=== PATIENT | female | born 1950 | race Caucasian/White ===

== ENCOUNTER → 2016-03-16 | Outpatient (CLI) | payer MEDICARE, OTHER | LOC: GMAL 10:49 | PROVIDERS: ATTEND Family Medicine | DX: M10.09 Idiopathic gout, multiple sites (principal) ==

== ENCOUNTER → 2016-03-24 | Outpatient (CLI) | payer MEDICARE, OTHER | LOC: GMAL 10:26 | PROVIDERS: ATTEND Family Medicine | DX: D51.3 Other dietary vitamin B12 deficiency anemia (principal) ==

== ENCOUNTER → 2016-04-06 | Outpatient (CLI) | payer MEDICARE, OTHER | LOC: GMAL 10:59 | PROVIDERS: ATTEND Family Medicine | DX: N30.00 Acute cystitis without hematuria (principal) ==

== ENCOUNTER → 2016-04-07 | Outpatient (CLI) | payer MEDICARE, OTHER ==
--- NOTE | 2016-04-07 11:08 | US ---
EXAM DESCRIPTION: US LIVER CLINICAL HISTORY: ELEVATED LFT'S COMPARISON: [address] scan of the abdomen TECHNIQUE: Right upper quadrant ultrasound FINDINGS: Today's study shows marked dilatation of the common bile duct measuring up to 2.1 cm in diameter. The etiology of the bile duct dilatation is not apparent on the sonogram. Pancreas is poorly seen secondary to overlying intestinal gas. There are areas of dirty shadowing within the liver which I suspect is secondary to air in the common bile duct indicating that this patient may have had previous papillotomy. Please correlate for history of previous biliary intervention. The liver is heterogeneous in echotexture with areas of hyperechogenicity consistent with fatty infiltration in correlating well with the CT scan findings. Gallbladder surgically absent. Right kidney unremarkable. IVC is unremarkable. Abdominal aorta not well seen. IMPRESSION: 1. Dilated common bile duct of uncertain etiology. I recommend further evaluation of the liver and bile duct with ultrasound. ERCP verses MRCP should be considered as well. Electronically signed by: Fitz Leslie MD 04/07/2016 11:07
== END ==
LOC: US 09:12
PROVIDERS: ATTEND Family Medicine
DX: R94.5 Abnormal results of liver function studies (principal)

== ENCOUNTER → 2016-04-12 | Outpatient (CLI) | payer MEDICARE, OTHER | LOC: NC 12:21 | PROVIDERS: ATTEND Family Medicine | DX: R30.0 Dysuria (principal); R30.9 Painful micturition, unspecified ==

== ENCOUNTER → 2016-04-14 | Outpatient (CLI) | payer MEDICARE, OTHER ==
--- NOTE | 2016-04-17 07:39 | MRI ---
EXAM DESCRIPTION: MR ABDOMEN WITHOUT IV CONTRAST CLINICAL HISTORY: 65 y/o F, DILATED COMMON BILE DUCT COMPARISON: None TECHNIQUE: Multiplanar multi sequence images of the abdomen were obtained without gadolinium contrast including MRCP images. FINDINGS: The common bile duct is dilated, measuring up to 2.3 cm transverse diameter. This is unchanged from an older CT performed in December,. No intraductal filling defect or stricture is identified. The cystic duct remnant is also slightly dilated. There is mild central intrahepatic biliary duct dilation. Pancreas divisum configuration of the pancreatic ductal anatomy is noted, but there is no pancreatic duct dilation. There is no peripancreatic fluid or inflammation. The gallbladder is surgically absent. The spleen is not enlarged. There is no abdominal aortic aneurysm. A tiny cyst arises from the superior pole of the left kidney. IMPRESSION: Extrahepatic and mild central intrahepatic biliary duct dilation, not significantly changed from August,. No filling defect or stricture in the common bile duct. Pancreas divisum without pancreatic duct dilation or evidence of pancreatitis. Electronically signed by: Wolf Palmer DO 04/17/2016 07:36
== END | disposition home or self-care (01) ==
LOC: MRI 09:54
PROVIDERS: ATTEND Family Medicine
DX: K76.9 Liver disease, unspecified (principal); Z98.84 Bariatric surgery status

== ENCOUNTER → 2016-04-18 | Outpatient (CLI) | payer MEDICARE, OTHER | END | disposition home or self-care (01) | LOC: GMAL 14:53 | PROVIDERS: ATTEND Family Medicine | DX: R30.0 Dysuria (principal) ==

== ENCOUNTER → 2016-04-25 | Outpatient (CLI) | payer MEDICARE, OTHER | END | disposition home or self-care (01) | LOC: GMAL 14:21 | PROVIDERS: ATTEND Family Medicine | DX: R30.0 Dysuria (principal) ==

== ENCOUNTER → 2016-05-30 | Outpatient (CLI) | payer MEDICARE, OTHER | LOC: SL 21:30 | PROVIDERS: ATTEND Psychiatry & Neurology Neurology | DX: G47.30 Sleep apnea, unspecified (principal); R09.89 Other specified symptoms and signs involving the circulatory and respiratory systems; R06.83 Snoring ==

== ENCOUNTER → 2016-08-16 | Outpatient (CLI) | payer MEDICARE, OTHER | END | disposition home or self-care (01) | LOC: GMAL 16:37 | PROVIDERS: ATTEND Family Medicine | DX: N30.00 Acute cystitis without hematuria (principal) ==

== ENCOUNTER 2016-09-07 11:47 | Emergency (ER) | payer MEDICARE, OTHER ==
--- NOTE | 2016-09-07 13:03 | ED.PDOC ---
History of Present Illness - General Chief Complaint: Lower Extremity Injury Stated Complaint: left leg swelling Time Seen by Provider: 09/07/16 12:56 Source: patient, RN notes reviewed, Vital Signs reviewed Exam Limitations: no limitations - History of Present Illness Initial Comments: Leah Mcclellan 65 y/o female stated that she noticed her left leg gradually swelled up left>right for the last 4 weeks after her warfarin was discontinued for her blood clots on her left leg Occurred: other - 3-4 weeks ago Pain - Lower Extremity: moderate: Left Calf, Right Calf Method of Injury: unknown Improving Factors: nothing Worsening Factors: nothing Allergies/Adverse Reactions: Allergies Acetaminophen [From Percocet] Allergy (Intermediate, Verified 02/23/16 09:22) Shortness of Breath CI Pigment Blue 63 [From Cymbalta] Allergy (Intermediate, Verified 02/23/16 09: 22) Shortness of Breath Codeine Allergy (Intermediate, Verified 02/23/16 09:22) Hives Duloxetine [From Cymbalta] Allergy (Intermediate, Verified 02/23/16 09:22) Shortness of Breath Meperidine [From Demerol HCl] Allergy (Intermediate, Verified 02/23/16 09:22) Shortness of Breath Oxycodone [From Percocet] Allergy (Intermediate, Verified 02/23/16 09:22) Shortness of Breath Citalopram [From Celexa] Allergy (Verified 02/23/16 09:22) Hydrocodone Allergy (Verified 02/23/16 09:22) Pregabalin [From Lyrica] Allergy (Verified 02/23/16 09:22) Home Medications: Ambulatory Orders DiphenhydrAMINE HCL [Benadryl] 25 mg PO PRN PRN 11/19/13 Diazepam [Valium] 10 mg PO BID PRN 07/06/14 Furosemide [Lasix] 80 mg PO DAILY 07/06/14 Levothyroxine Sodium [Synthroid] 175 mcg PO BEDTIME 07/06/14 Morphine Sulfate [Ms Contin] 90 mg PO BEDTIME 07/06/14 Potassium Chloride [Micro-K] 10 meq PO BID 07/06/14 Morphine Sulfate [Ms Contin] 30 mg PO TID PRN 07/08/14 Atenolol [Tenormin] 100 mg PO DAILY 08/04/14 Mirtazapine [Remeron] 30 mg PO QDAC #30 tab 08/07/14 Esomeprazole Magnesium [Nexium 24Hr] 20 mg PO BEDTIME 05/31/15 Gabapentin [Neurontin] 100 mg PO BEDTIME 05/31/15 Glimepiride 1 mg PO DAILY 05/31/15 Colchicine 1.2 mg PO ONCE #3 tab 02/09/16 Colchicine [Colcrys] 1 each PO DAILY 02/23/16 Linagliptin [Tradjenta] 5 mg PO DAILY 02/23/16 Metoclopramide HCl [Reglan] 10 mg PO BEDTIME 02/23/16 Potassium Gluconate 550 mg PO DAILY 02/23/16 Rivaroxaban [Xarelto] 15 mg PO DAILY 02/23/16 Sulfa/Trimeth 800/160 (Ds) Tab [Bactrim DS] 1 each PO BID 02/23/16 Trazodone HCl 50 mg PO BEDTIME 02/23/16 Uloric 80 mg PO DAILY 02/23/16 Review of Systems - Review of Systems Constitutional: States: no symptoms reported EENTM: States: no symptoms reported Respiratory: States: no symptoms reported Cardiology: States: no symptoms reported Gastrointestinal/Abdominal: States: no symptoms reported Genitourinary: States: no symptoms reported Musculoskeletal: States: see HPI Skin: States: no symptoms reported Neurological: States: no symptoms reported Endocrine: States: no symptoms reported Hematologic/Lymphatic: States: no symptoms reported Past Medical History (General) - Patient Medical History Hx Seizures: No Hx Stroke: No Hx Dementia: No Hx Asthma: No Hx of COPD: No Hx Cardiac Disorders: No Hx Congestive Heart Failure: No Hx Pacemaker: No Hx Hypertension: Yes Hx Thyroid Disease: Yes Hx Diabetes: Yes Hx Gastroesophageal Reflux: Yes Hx Renal Disease: Yes Hx Cancer: Yes Hx of HIV: No Hx Hepatitis C: No Hx MRSA: Yes MRSA Source:: Wound Surgical History: tonsillectomy - toe amputations,knee,carpal tunnel surgery, other - right hemicolectomy,ctaract, - Vaccination History Hx Tetanus, Diphtheria Vaccination: Yes Hx Influenza Vaccination: Yes Hx Pneumococcal Vaccination: Yes - Social History Hx Tobacco Use: No Hx Chewing Tobacco Use: No Hx Alcohol Use: No Hx Substance Use: No Hx Substance Use Treatment: No Hx Depression: No Hx Physical Abuse: No Hx Emotional Abuse: No Hx Suspected Abuse: No - Activities of Daily Living Grooming Ability: Independent Eating (Feeding) Ability: Independent Toileting Ability: Standby Assistance - Female History Patient : No Family Medical History - Family History Father Family History: Unknown Living Status: Hx Family Asthma: No Hx Family Congestive Heart Failure: Yes Hx Family Hypertension: Yes Hx Family Stroke: No Hx Cardiac Disease: Yes Hx Family Diabetes: No Hx Family Cancer: Yes - colon several family members Mother Family History: Unknown Living Status: Hx Family Asthma: Yes Hx Family Congestive Heart Failure: Yes Hx Family Hypertension: Yes Hx Family Stroke: No Hx Cardiac Disease: Yes - hx CABG Hx Family Diabetes: No Hx Family Cancer: No Hx Family;Other: emphysema Physical Exam - Physical Exam General Appearance: Alert, Comfortable, No apparent distress Eyes, Ears, Nose, Throat: PERRL/EOMI, normal ENT inspection, TMs normal, pharynx normal Neck: non-tender, full range of motion, supple, normal inspection Cardiovascular/Respiratory: regular rate, rhythm, no M/R/G, normal peripheral pulses, no JVD, normal breath sounds, no respiratory distress Gastrointestinal/Abdominal: non-tender, no organomegaly Back: normal inspection, no CVA tenderness, no vertebral tenderness Thigh/Hip: normal inspection, no evidence of injury Knee: swelling - left leg,no calf tenderness,also noted mild swelling right leg with varicosities noted Ankle: normal inspection, normal ROM Foot: other - multiple toe amputations Mental Status: alert, oriented x 3 Skin: normal color, warm/dry Progress - Progress Progress: 09/07/16 15:49 Vital Signs - 8 hr 09/07/16 09/07/16 09/07/16 12:30 13:14 14:26 Temperature 97.3 F L Pulse Rate [ 74 71 76 LEFT BRACHIAL] Respiratory 20 20 16 Rate Blood Pressure 155/73 125/63 153/74 [RIGHT BRACHIAL ] O2 Sat by Pulse 95 96 100 Oximetry 09/07/16 15:14 Temperature Pulse Rate [ 63 LEFT BRACHIAL] Respiratory 16 Rate Blood Pressure 129/69 [RIGHT BRACHIAL ] O2 Sat by Pulse 100 Oximetry - Results/Orders Results/Orders: Laboratory Results - last 24 hr 09/07/16 09/07/16 09/07/16 13:20 13:25 13:25 WBC 4.9 RBC 3.47 L Hgb 11.1 L Hct 32.4 L MCV 93.3 MCH 31.9 H MCHC 34.3 RDW 14.0 Plt Count 119 L MPV 7.9 Absolute Neuts (auto) 2.80 Absolute Lymphs (auto) 1.60 Absolute Monos (auto) 0.40 Absolute Eos (auto) 0.20 Absolute Basos (auto) 0.00 Neutrophils % 56.8 Lymphocytes % 31.9 Monocytes % 7.6 Eosinophils % 3.2 Basophils % 0.5 PT 11.5 INR 1.020 PTT (SP) 29.4 Sodium Potassium Chloride Carbon Dioxide Anion Gap BUN Creatinine BUN/Creatinine Ratio Random Glucose Serum Osmolality Calcium Urine Color Yellow Urine Appearance Sl cloudy Urine pH 5.0 Ur Specific [place] 1.010 Urine Protein Negative Urine Glucose (UA) Negative Urine Ketones Negative Urine Blood Negative Urine Nitrite Negative Urine Bilirubin Negative Urine Urobilinogen 0.2 Ur Leukocyte Esterase Negative Urine RBC 0-1 Urine WBC 0 Ur Epithelial Cells 0-1 Amorphous Sediment 1+ Urine Bacteria 1+ 09/07/16 13:25 WBC RBC Hgb Hct MCV MCH MCHC RDW Plt Count MPV Absolute Neuts (auto) Absolute Lymphs (auto) Absolute Monos (auto) Absolute Eos (auto) Absolute Basos (auto) Neutrophils % Lymphocytes % Monocytes % Eosinophils % Basophils % PT INR PTT (SP) Sodium 141 Potassium 4.1 Chloride 104 Carbon Dioxide 28 Anion Gap 13.1 BUN 18 Creatinine 1.36 H BUN/Creatinine Ratio 13.2 Random Glucose 114 H Serum Osmolality 284.0 Calcium 8.9 Urine Color Urine Appearance Urine pH Ur Specific [place] Urine Protein Urine Glucose (UA) Urine Ketones Urine Blood Urine Nitrite Urine Bilirubin Urine Urobilinogen Ur Leukocyte Esterase Urine RBC Urine WBC Ur Epithelial Cells Amorphous Sediment Urine Bacteria - EKG/XRAY/CT XRAY: bilateral venous doppler-leg no dvt/radiologist Departure - Departure Clinical Impression: Localized swelling of both lower legs, History of DVT of lower extremity, CKD ( chronic kidney disease) stage 2, GFR 60-89 ml/min Time of Disposition: 15:51 Disposition: Discharge to Home or Self Care Condition: Fair Referrals: Yahir Thompson III, MD [Primary Care Provider] - 1-2 Weeks Home Medications: Ambulatory Orders DiphenhydrAMINE HCL [Benadryl] 25 mg PO PRN PRN 11/19/13 Diazepam [Valium] 10 mg PO BID PRN 07/06/14 Furosemide [Lasix] 80 mg PO DAILY 07/06/14 Levothyroxine Sodium [Synthroid] 175 mcg PO BEDTIME 07/06/14 Morphine Sulfate [Ms Contin] 90 mg PO BEDTIME 07/06/14 Potassium Chloride [Micro-K] 10 meq PO BID 07/06/14 Morphine Sulfate [Ms Contin] 30 mg PO TID PRN 07/08/14 Atenolol [Tenormin] 100 mg PO DAILY 08/04/14 Mirtazapine [Remeron] 30 mg PO QDAC #30 tab 08/07/14 Esomeprazole Magnesium [Nexium 24Hr] 20 mg PO BEDTIME 05/31/15 Gabapentin [Neurontin] 100 mg PO BEDTIME 05/31/15 Glimepiride 1 mg PO DAILY 05/31/15 Colchicine 1.2 mg PO ONCE #3 tab 02/09/16 Colchicine [Colcrys] 1 each PO DAILY 02/23/16 Linagliptin [Tradjenta] 5 mg PO DAILY 02/23/16 Metoclopramide HCl [Reglan] 10 mg PO BEDTIME 02/23/16 Potassium Gluconate 550 mg PO DAILY 02/23/16 Rivaroxaban [Xarelto] 15 mg PO DAILY 02/23/16 Sulfa/Trimeth 800/160 (Ds) Tab [Bactrim DS] 1 each PO BID 02/23/16 Trazodone HCl 50 mg PO BEDTIME 02/23/16 Uloric 80 mg PO DAILY 02/23/16 Additional Instructions: Follow up with primary md 09/13/2016 patient to call for appointment;Return to emergency room as needed;Continue with all home medications
--- NOTE | 2016-09-07 14:11 | US ---
EXAM DESCRIPTION: Venous,Lower Extremity RT CLINICAL HISTORY: 65 years, Female, swelling COMPARISON: None TECHNIQUE: Duplex venous ultrasound of the right lower extremity was performed. FINDINGS: The right lower extremity veins are fully compressible and demonstrate physiologic responses to Valsalva maneuvers. Color Doppler images show no intraluminal filling defect. IMPRESSION: Negative exam. No evidence of DVT in the right lower extremity. Electronically signed by: Wolf Palmer MD 09/07/2016 2:09 PM CDT Workstation: [facility]
[2016-09-07] MEDS ORDERED: MORPHINE SULFATE INJ 10 MG/ML VIAL IM ONE (14:44)
--- NOTE | 2016-09-07 15:01 | US ---
Study: Left lower extremity venous Doppler sonogram. Indication: swelling Technical: Multiplanar grayscale and Doppler sonographic images of the deep veins of the left lower extremity obtained. Findings: There is no sonographic evidence of deep venous thrombosis. The deep veins of the left lower extremity compress normally and have appropriate duplex waveforms. Normal flow augmentation is noted as well. Conclusion: 1. No sonographic evidence of deep venous thrombosis of the left lower extremity. Electronically signed by: Angel Luis Almanzar MD 09/07/2016 3:00 PM CDT
[2016-09-07 15:39] VITALS: TEMP 97.3
[2016-09-07 16:53] VITALS: BP 131/55; O2SAT 96
== END 2016-09-07 16:40 | disposition home or self-care (01) ==
LOC: ER 11:47
DX: R22.43 Localized swelling, mass and lump, lower limb, bilateral (principal); Z86.718 Personal history of other venous thrombosis and embolism; I12.9 Hypertensive chronic kidney disease with stage 1 through stage 4 chronic kidney disease, or unspecified chronic kidney disease; N18.2 Chronic kidney disease, stage 2 (mild); E07.9 Disorder of thyroid, unspecified; K21.9 Gastro-esophageal reflux disease without esophagitis; Z85.9 Personal history of malignant neoplasm, unspecified; Z86.14 Personal history of Methicillin resistant Staphylococcus aureus infection; Z89.429 Acquired absence of other toe(s), unspecified side; Z79.899 Other long term (current) drug therapy; Z88.8 Allergy status to other drugs, medicaments and biological substances
CPT/HCPCS: 36415; 80048; 81001; 85025; 85610; 85730; 93971; J2270

== ENCOUNTER → 2016-09-19 | Outpatient (CLI) | payer MEDICARE, OTHER | END | disposition home or self-care (01) | LOC: NC 09:55 | PROVIDERS: ATTEND Family Medicine | DX: E11.22 Type 2 diabetes mellitus with diabetic chronic kidney disease (principal); D51.0 Vitamin B12 deficiency anemia due to intrinsic factor deficiency; R30.0 Dysuria; I12.9 Hypertensive chronic kidney disease with stage 1 through stage 4 chronic kidney disease, or unspecified chronic kidney disease; N18.9 Chronic kidney disease, unspecified; E55.9 Vitamin D deficiency, unspecified ==

== ENCOUNTER → 2016-09-27 | Outpatient (CLI) | payer MEDICARE, OTHER | LOC: GMAL 16:53 | PROVIDERS: ATTEND Family Medicine | DX: N30.00 Acute cystitis without hematuria (principal) ==

== ENCOUNTER → 2016-09-28 | Outpatient (CLI) | payer MEDICARE, OTHER ==
--- NOTE | 2016-09-28 13:08 | US ---
EXAM DESCRIPTION: Renal CLINICAL HISTORY: ACUTE RENAL INJURY COMPARISON: CT the abdomen dated 14 December 2015 TECHNIQUE: Sonographic images of the kidneys were acquired bilaterally and submitted for review. FINDINGS: Right kidney Size: Normal cm Echogenicity: Normal Parenchymal thickness and contour: Normal Pelvicalyceal dilatation: None Calculi: None 8.7 x 4.5 x 3.5 Cysts: None Masses:None Left kidney Size: 10.5 x 3.7 x 4.1 cm Echogenicity: Normal Parenchymal thickness and contour: Normal Pelvicalyceal dilatation: None Calculi: The exam suggests a mid pole left calculus measuring 4.6 mm. Cysts: None Masses:None Other findings IVC/aorta: Not imaged Urinary bladder: Not imaged Hepatic steatosis is observed. IMPRESSION: The exam suggests a mid pole left renal calculus measuring 4.6 cm in diameter. Electronically signed by: Yahir Agrawal MD 09/28/2016 1:06 PM CDT
== END ==
LOC: US 08:19
PROVIDERS: ATTEND Internal Medicine Nephrology
DX: N17.0 Acute kidney failure with tubular necrosis (principal); N20.0 Calculus of kidney

== ENCOUNTER → 2016-10-02 | Outpatient (CLI) | payer MEDICARE, OTHER | LOC: NC 18:51 | PROVIDERS: ATTEND Family Medicine | DX: E11.9 Type 2 diabetes mellitus without complications (principal); I12.9 Hypertensive chronic kidney disease with stage 1 through stage 4 chronic kidney disease, or unspecified chronic kidney disease; D51.0 Vitamin B12 deficiency anemia due to intrinsic factor deficiency; M10.9 Gout, unspecified ==

== ENCOUNTER 2016-10-06 13:10 | Emergency (ER) | payer MEDICARE, OTHER ==
--- NOTE | 2016-10-06 13:35 | ED.PDOC ---
History of Present Illness - General Chief Complaint: Skin/Abrasion/Tear Stated Complaint: ? cellulitis L foot Time Seen by Provider: 10/06/16 13:26 Source: patient, RN notes reviewed, Vital Signs reviewed Exam Limitations: no limitations - History of Present Illness Initial Comments: Patient noticed some redness and swelling on her L distal foot last night. 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 She is on Levaquin and has been for 14 days. She would like X-ray to make sure there is not infection in the bone. Timing/Duration: yesterday Severity: mild Location: feet Improving Factors: nothing Worsening Factors: nothing Associated Symptoms: swelling/mass/lumps Allergies/Adverse Reactions: Allergies Acetaminophen [From Percocet] Allergy (Intermediate, Verified 02/23/16 09:22) Shortness of Breath CI Pigment Blue 63 [From Cymbalta] Allergy (Intermediate, Verified 02/23/16 09: 22) Shortness of Breath Codeine Allergy (Intermediate, Verified 02/23/16 09:22) Hives Duloxetine [From Cymbalta] Allergy (Intermediate, Verified 02/23/16 09:22) Shortness of Breath Meperidine [From Demerol HCl] Allergy (Intermediate, Verified 02/23/16 09:22) Shortness of Breath Oxycodone [From Percocet] Allergy (Intermediate, Verified 02/23/16 09:22) Shortness of Breath Citalopram [From Celexa] Allergy (Verified 02/23/16 09:22) Hydrocodone Allergy (Verified 02/23/16 09:22) Pregabalin [From Lyrica] Allergy (Verified 02/23/16 09:22) Home Medications: Ambulatory Orders Diazepam [Valium] 10 mg PO BID 07/06/14 Furosemide [Lasix] 80 mg PO DAILY 07/06/14 Levothyroxine Sodium [Synthroid] 175 mcg PO BEDTIME 07/06/14 Potassium Chloride [Micro-K] 10 meq PO QID 07/06/14 Morphine Sulfate [Ms Contin] 30 mg PO QID 07/08/14 Atenolol [Tenormin] 100 mg PO DAILY 08/04/14 Gabapentin [Neurontin] 100 mg PO BEDTIME 05/31/15 Glimepiride 1 mg PO DAILY 05/31/15 Linagliptin [Tradjenta] 5 mg PO DAILY 02/23/16 Trazodone HCl 50 mg PO BEDTIME 02/23/16 Uloric 40 mg PO DAILY 02/23/16 B-Complex Vitamins [Vitamin B Complex] 1 tab PO DAILY 09/07/16 Ferrous Sulfate [Iron] 65 mg PO DAILY 09/07/16 Hydroxyzine HCl 25 mg PO TID 09/07/16 Indomethacin 25 mg PO DAILY 09/07/16 Insulin Glargine [Lantus Solostar] 26 unit SC DAILY 09/07/16 Levetiracetam 500 mg PO BEDTIME 09/07/16 Omeprazole [PriLOSEC Cap] 40 mg PO DAILY 09/07/16 Prednisone [Deltasone] 60 mg PO .DAILY ON Sunday09/07/16 Probiotic Product [Probiotic] 1 tab PO DAILY 09/07/16 Warfarin Sodium 2.5 mg PO DAILY 09/07/16 Clindamycin HCl 300 mg PO QID #28 cap 10/06/16 Review of Systems - Review of Systems Constitutional: States: no symptoms reported Respiratory: States: no symptoms reported Cardiology: States: no symptoms reported Gastrointestinal/Abdominal: States: no symptoms reported Musculoskeletal: States: no symptoms reported Skin: States: see HPI Neurological: States: no symptoms reported All other Systems: No Change from Baseline Past Medical History (General) - Patient Medical History Hx Seizures: No Hx Stroke: No Hx Dementia: No Hx Asthma: No Hx of COPD: No Hx Cardiac Disorders: No Hx Congestive Heart Failure: No Hx Pacemaker: No Hx Hypertension: Yes Hx Thyroid Disease: Yes Hx Diabetes: Yes Hx Gastroesophageal Reflux: Yes Hx Renal Disease: Yes Hx Cancer: Yes Hx of HIV: No Hx Hepatitis C: No Hx MRSA: Yes MRSA Source:: Wound - Vaccination History Hx Tetanus, Diphtheria Vaccination: Yes Hx Influenza Vaccination: Yes Hx Pneumococcal Vaccination: Yes - Social History Hx Tobacco Use: No Hx Chewing Tobacco Use: No Hx Alcohol Use: No Hx Substance Use: No Hx Substance Use Treatment: No Hx Depression: No Hx Physical Abuse: No Hx Emotional Abuse: No Hx Suspected Abuse: No - Female History Patient : No Family Medical History - Family History Father Family History: Unknown Living Status: Hx Family Asthma: No Hx Family Congestive Heart Failure: Yes Hx Family Hypertension: Yes Hx Family Stroke: No Hx Cardiac Disease: Yes Hx Family Diabetes: No Hx Family Cancer: Yes - colon several family members Mother Family History: Unknown Living Status: Hx Family Asthma: Yes Hx Family Congestive Heart Failure: Yes Hx Family Hypertension: Yes Hx Family Stroke: No Hx Cardiac Disease: Yes - hx CABG Hx Family Diabetes: No Hx Family Cancer: No Hx Family;Other: emphysema Physical Exam - Physical Exam General Appearance: Alert, Comfortable, No apparent distress, Well Developed, Well Groomed, Well Hydrated, Well Nourished Respiratory: no respiratory distress Extremity: non-tender, pedal edema, swelling, other - Left foot: s/p amputation of toes w/ scabbed wound on lateral, distal aspect of foot with mild erythema, warmth and swelling. Neurologic: alert, normal mood/affect, oriented x 3 Skin Exam: warm/dry, normal color Skin Problem Location: lower extremities - L foot Skin Character: erythema, swelling, warm Progress - EKG/XRAY/CT XRAY: L foot: no signs of osteomyeolitis per Radiologist Departure - Departure Clinical Impression: Cellulitis Qualifiers: Site of cellulitis: extremity Site of cellulitis of extremity: lower extremity Laterality: left Qualified Code(s): L03.116 - Cellulitis of left lower limb Disposition: Discharge to Home or Self Care Condition: Good Instructions: DI for Cellulitis -- Adult Diet: resume usual diet Activity: increase activity as tolerated Referrals: Yahir Thompson III, MD [Primary Care Provider] - 1-2 Weeks MICHELE CHÁVEZ JR DPM [Referring] - 1-5 Days Prescriptions: Clindamycin HCl 300 mg PO QID #28 cap Home Medications: Ambulatory Orders Diazepam [Valium] 10 mg PO BID 07/06/14 Furosemide [Lasix] 80 mg PO DAILY 07/06/14 Levothyroxine Sodium [Synthroid] 175 mcg PO BEDTIME 07/06/14 Potassium Chloride [Micro-K] 10 meq PO QID 07/06/14 Morphine Sulfate [Ms Contin] 30 mg PO QID 07/08/14 Atenolol [Tenormin] 100 mg PO DAILY 08/04/14 Gabapentin [Neurontin] 100 mg PO BEDTIME 05/31/15 Glimepiride 1 mg PO DAILY 05/31/15 Linagliptin [Tradjenta] 5 mg PO DAILY 02/23/16 Trazodone HCl 50 mg PO BEDTIME 02/23/16 Uloric 40 mg PO DAILY 02/23/16 B-Complex Vitamins [Vitamin B Complex] 1 tab PO DAILY 09/07/16 Ferrous Sulfate [Iron] 65 mg PO DAILY 09/07/16 Hydroxyzine HCl 25 mg PO TID 09/07/16 Indomethacin 25 mg PO DAILY 09/07/16 Insulin Glargine [Lantus Solostar] 26 unit SC DAILY 09/07/16 Levetiracetam 500 mg PO BEDTIME 09/07/16 Omeprazole [PriLOSEC Cap] 40 mg PO DAILY 09/07/16 Prednisone [Deltasone] 60 mg PO .DAILY ON Sunday09/07/16 Probiotic Product [Probiotic] 1 tab PO DAILY 09/07/16 Warfarin Sodium 2.5 mg PO DAILY 09/07/16 Clindamycin HCl 300 mg PO QID #28 cap 10/06/16
[2016-10-06 13:51] VITALS: O2SAT 94
--- NOTE | 2016-10-06 14:18 | RAD ---
EXAM DESCRIPTION: Foot,Left 3 Views CLINICAL HISTORY: Hx of MRSA, ? osteomyelitis COMPARISON: October 15, 2015 IMPRESSION: 3 views of the left foot show amputation of the first through fifth toes. Radiopaque foreign body in the soft tissue plantar to the fifth metatarsal is seen. Mild lucency in the soft tissue distal to the fifth metatarsal is seen. No bony destructive changes or periosteal thickening is seen to suggest osteomyelitis. No fracture or dislocation is seen. Moderate degenerative changes of the midfoot tarsal bones are seen. Pes planus is noted. Electronically signed by: Narayan Cohen MD 10/06/2016 2:17 PM CDT
[2016-10-06 15:22] VITALS: BP 137/73
== END 2016-10-06 15:13 | disposition home or self-care (01) ==
LOC: ER 13:10
DX: L03.116 Cellulitis of left lower limb (principal); I10 Essential (primary) hypertension; E07.9 Disorder of thyroid, unspecified; E11.9 Type 2 diabetes mellitus without complications; K21.9 Gastro-esophageal reflux disease without esophagitis; N28.9 Disorder of kidney and ureter, unspecified; Z85.9 Personal history of malignant neoplasm, unspecified; Z86.14 Personal history of Methicillin resistant Staphylococcus aureus infection; Z88.6 Allergy status to analgesic agent; Z88.8 Allergy status to other drugs, medicaments and biological substances; Z79.4 Long term (current) use of insulin; Z79.01 Long term (current) use of anticoagulants; Z79.899 Other long term (current) drug therapy

== ENCOUNTER → 2016-10-18 | Outpatient (CLI) | payer MEDICARE, OTHER | END | disposition home or self-care (01) | LOC: NC 09:59 | PROVIDERS: ATTEND Family Medicine | DX: E11.9 Type 2 diabetes mellitus without complications (principal); I12.9 Hypertensive chronic kidney disease with stage 1 through stage 4 chronic kidney disease, or unspecified chronic kidney disease; N18.9 Chronic kidney disease, unspecified; D51.0 Vitamin B12 deficiency anemia due to intrinsic factor deficiency ==

== ENCOUNTER → 2016-11-09 | Outpatient (CLI) | payer MEDICARE, OTHER | END | disposition home or self-care (01) | LOC: NC 09:48 | PROVIDERS: ATTEND Family Medicine | DX: R30.0 Dysuria (principal) ==

== ENCOUNTER 2016-12-09 20:43 | Emergency (ER) | payer MEDICARE, OTHER ==
[2016-12-09 21:03] VITALS: TEMP 98.2
--- NOTE | 2016-12-09 21:29 | RAD ---
Examination: XR CHEST 1 VIEW dated 12/09/2016 9:04 PM CDT History: ams Comparison: 05/28/2015 Technique: Frontal view of the chest Findings: 1 cm focal calcified opacity projecting over the left lung base. Right lung is clear. No pneumothorax or pleural effusion. The cardiomediastinal silhouette is within normal limits. Impression: No acute disease. Left lower lobe calcified granuloma as seen on CT of the abdomen 03/15/2012. Electronically signed by: Augustus Castro MD 12/09/2016 9:28 PM CDT
[2016-12-09] MEDS ORDERED: SODIUM CHLORIDE 0.9% 1000ML 1,000 ML IVS ONE (21:34)
[2016-12-09] MEDS ORDERED: METOPROLOL TARTRATE INJ 5 MG/5 ML VIAL IV ONE (21:37)
[2016-12-09] MEDS ORDERED: KETOROLAC TROMETHAMINE INJ 30 MG/ML VIAL IV ONE (21:44)
[2016-12-09] MEDS ORDERED: ONDANSETRON ODT 8 MG TAB SL ONE (21:44)
[2016-12-09] MEDS ORDERED: GABAPENTIN 300 MG CAP PO ONE (21:45)
--- NOTE | 2016-12-09 22:25 | ED.PDOC ---
History of Present Illness - General Chief Complaint: Unresponsive Stated Complaint: unresponsive, shallow breathing Time Seen by Provider: 12/09/16 20:45 Source: patient, family Exam Limitations: no limitations - History of Present Illness Initial Comments: The patient is 66-year-old female brought in by EMS secondary to her finding her minimally responsive. The patient does have chronic pain and does take multiple sedative type medications. She took a couple of her morphine pills which equates to about 60 mg of morphine, which was apparently too much. EMS gave her 1.5 mg of Narcan and the patient has come back around nicely. The patient took this due to foot pain. This was not a suicide attempt. The patient is apparently very noncompliant with taking her other medications on a scheduled basis. She also does have a history of seizure activity but does not believe that she had a seizure this time. There is no evidence of any fall. The patient did get nauseated with the Narcan and threw up one time. Timing/Duration: 1-3 hours Severity: moderate Improving Factors: medication Worsening Factors: nothing Associated Symptoms: malaise Allergies/Adverse Reactions: Allergies Acetaminophen [From Percocet] Allergy (Intermediate, Verified 12/09/16 21:17) Shortness of Breath CI Pigment Blue 63 [From Cymbalta] Allergy (Intermediate, Verified 12/09/16 21: 17) Shortness of Breath Codeine Allergy (Intermediate, Verified 12/09/16 21:17) Hives Duloxetine [From Cymbalta] Allergy (Intermediate, Verified 12/09/16 21:17) Shortness of Breath Meperidine [From Demerol HCl] Allergy (Intermediate, Verified 12/09/16 21:17) Shortness of Breath Oxycodone [From Percocet] Allergy (Intermediate, Verified 12/09/16 21:17) Shortness of Breath Citalopram [From Celexa] Allergy (Verified 12/09/16 21:17) Hydrocodone Allergy (Verified 12/09/16 21:17) Pregabalin [From Lyrica] Allergy (Verified 12/09/16 21:17) Home Medications: Ambulatory Orders Diazepam [Valium] 10 mg PO BID 07/06/14 Furosemide [Lasix] 80 mg PO DAILY 07/06/14 Levothyroxine Sodium [Synthroid] 175 mcg PO BEDTIME 07/06/14 Potassium Chloride [Micro-K] 10 meq PO QID 07/06/14 Morphine Sulfate [Ms Contin] 30 mg PO QID 07/08/14 Atenolol [Tenormin] 100 mg PO DAILY 08/04/14 Gabapentin [Neurontin] 100 mg PO BEDTIME 05/31/15 Glimepiride 1 mg PO DAILY 05/31/15 Linagliptin [Tradjenta] 5 mg PO DAILY 02/23/16 Trazodone HCl 50 mg PO BEDTIME 02/23/16 Uloric 40 mg PO DAILY 02/23/16 B-Complex Vitamins [Vitamin B Complex] 1 tab PO DAILY 09/07/16 Ferrous Sulfate [Iron] 65 mg PO DAILY 09/07/16 Hydroxyzine HCl 25 mg PO TID 09/07/16 Indomethacin 25 mg PO DAILY 09/07/16 Insulin Glargine [Lantus Solostar] 26 unit SC DAILY 09/07/16 Levetiracetam 500 mg PO BEDTIME 09/07/16 Omeprazole [PriLOSEC Cap] 40 mg PO DAILY 09/07/16 Prednisone [Deltasone] 60 mg PO .DAILY ON Sunday09/07/16 Probiotic Product [Probiotic] 1 tab PO DAILY 09/07/16 Warfarin Sodium 2.5 mg PO DAILY 09/07/16 Clindamycin HCl 300 mg PO QID #28 cap 10/06/16 Review of Systems - Review of Systems Constitutional: States: malaise EENTM: States: no symptoms reported Respiratory: States: no symptoms reported Cardiology: States: no symptoms reported Gastrointestinal/Abdominal: States: nausea Genitourinary: States: no symptoms reported Musculoskeletal: States: back pain, joint pain, muscle pain Skin: States: no symptoms reported Neurological: States: anxiety, depressed Endocrine: States: no symptoms reported All other Systems: No Change from Baseline Past Medical History (General) - Patient Medical History Hx Seizures: No Hx Stroke: No Hx Dementia: No Hx Asthma: No Hx of COPD: No Hx Cardiac Disorders: No Hx Congestive Heart Failure: No Hx Pacemaker: No Hx Hypertension: Yes Hx Thyroid Disease: Yes Hx Diabetes: Yes Hx Gastroesophageal Reflux: Yes Hx Renal Disease: Yes Hx Cancer: Yes - colon Hx of HIV: No Hx Hepatitis C: No Hx MRSA: Yes MRSA Source:: Wound - Vaccination History Hx Tetanus, Diphtheria Vaccination: No Hx Influenza Vaccination: Yes Hx Pneumococcal Vaccination: Yes - Social History Hx Tobacco Use: No Hx Chewing Tobacco Use: No Hx Alcohol Use: No Hx Substance Use: No Hx Substance Use Treatment: No Hx Depression: No Hx Physical Abuse: No Hx Emotional Abuse: No Hx Suspected Abuse: No - Female History Patient : No Family Medical History - Family History Father Family History: Unknown Living Status: Hx Family Asthma: No Hx Family Congestive Heart Failure: Yes Hx Family Hypertension: Yes Hx Family Stroke: No Hx Cardiac Disease: Yes Hx Family Diabetes: No Hx Family Cancer: Yes - colon several family members Mother Family History: Unknown Living Status: Hx Family Asthma: Yes Hx Family Congestive Heart Failure: Yes Hx Family Hypertension: Yes Hx Family Stroke: No Hx Cardiac Disease: Yes - hx CABG Hx Family Diabetes: No Hx Family Cancer: No Hx Family;Other: emphysema Physical Exam - Physical Exam General Appearance: Alert - ildly drowsy but easily rousable, Comfortable, No apparent distress Eye Exam: bilateral normal Ears, Nose, Throat: hearing grossly normal, normal ENT inspection Neck: supple, normal inspection Respiratory: lungs clear, normal breath sounds, no respiratory distress, no accessory muscle use Cardiovascular/Chest: normal peripheral pulses, regular rate, rhythm, no edema Peripheral Pulses: radial,right: 2+, radial,left: 2+, dorsalis pedis,right: 2+, dorsalis pedis,left: 2+ Gastrointestinal/Abdominal: non tender, soft Rectal Exam: deferred Back Exam: no vertebral tenderness Extremity: normal range of motion, no pedal edema, other - the patient has diffuse tenderness to her lower legsnot just on the calves. This is a chronic problem. Neurologic: paper sorter II-XII nml as tested, alert, oriented x 3, other - the patient is very anxious Skin Exam: normal color Comments: Vital Signs - 24 hr 12/09/16 20:54 Temperature 98.2 F Pulse Rate 84 Pulse Rate [ 90 left] Respiratory 14 Rate Blood Pressure 144/83 [left] O2 Sat by Pulse 98 Oximetry Progress - Progress Progress: 12/09/16 22:28 the patient is a 66-year-old female presenting to the emergency room secondary to oversedation with her pain and anxiety medications. The patient has been monitored and is alert and oriented and not drowsy at all at this point. She needs to discuss with her pain management doctor having a smaller dose morphine to take on an as-needed basis. She was given a liter of IV fluids for mild dehydration. She was also given a dose of gabapentin and Toradol for her leg pain. Her TSH is low and a full thyroid panel should be obtained with her primary care doctor in the coming weeks. She is subtherapeutic on her INR and this also needs to be discussed with her primary care doctor. ER warnings were given. She needs to take no further morphine tonight. - Results/Orders Results/Orders: 12/09/16 21:04 Telemetry .CONTINUOUS Laboratory Results - last 24 hr 12/09/16 12/09/16 12/09/16 21:04 21:04 21:04 WBC 5.9 RBC 4.07 L Hgb 12.8 Hct 37.2 MCV 91.3 MCH 31.4 H MCHC 34.5 RDW 13.2 Plt Count 157 MPV 8.5 Absolute Neuts (auto) 3.70 Absolute Lymphs (auto) 1.90 Absolute Monos (auto) 0.30 Absolute Eos (auto) 0.00 Absolute Basos (auto) 0.00 Neutrophils % 62.4 Lymphocytes % 32.0 Monocytes % 4.7 Eosinophils % 0.6 L Basophils % 0.3 PT 12.3 INR 1.090 PTT (SP) 29.2 Sodium 138 Potassium 4.0 Chloride 98 L Carbon Dioxide 26 Anion Gap 18.0 BUN 24 H Creatinine 1.64 H BUN/Creatinine Ratio 14.6 Random Glucose 140 H Serum Osmolality 282.0 Calcium 9.4 Magnesium 2.0 Total Bilirubin 1.4 H AST 55 H ALT 49 Alkaline Phosphatase 89 Creatine Kinase 60 CK-MB (CK-2) 2.1 CK-MB (CK-2) % Not Reportable Troponin I < 0.02 B-Natriuretic Peptide 62.2 Serum Total Protein 7.4 Albumin 4.3 Globulin 3.1 Albumin/Globulin Ratio 1.4 TSH < 0.06 L Departure - Departure Clinical Impression: Morphine overdose Qualifiers: Encounter type: initial encounter Injury intent: accidental or unintentional Qualified Code(s): T40.2X1A - Poisoning by other opioids, accidental ( unintentional), initial encounter Disposition: Discharge to Home or Self Care Condition: Fair Departure Forms: ED Discharge - Pt. Copy, Patient Portal Self Enrollment Diet: diabetic diet Activity: increase activity as tolerated Referrals: Yahir Thompson III, MD [Primary Care Provider] - 1-5 Days Home Medications: Ambulatory Orders Diazepam [Valium] 10 mg PO BID 07/06/14 Furosemide [Lasix] 80 mg PO DAILY 07/06/14 Levothyroxine Sodium [Synthroid] 175 mcg PO BEDTIME 07/06/14 Potassium Chloride [Micro-K] 10 meq PO QID 07/06/14 Morphine Sulfate [Ms Contin] 30 mg PO QID 07/08/14 Atenolol [Tenormin] 100 mg PO DAILY 08/04/14 Gabapentin [Neurontin] 100 mg PO BEDTIME 05/31/15 Glimepiride 1 mg PO DAILY 05/31/15 Linagliptin [Tradjenta] 5 mg PO DAILY 02/23/16 Trazodone HCl 50 mg PO BEDTIME 02/23/16 Uloric 40 mg PO DAILY 02/23/16 B-Complex Vitamins [Vitamin B Complex] 1 tab PO DAILY 09/07/16 Ferrous Sulfate [Iron] 65 mg PO DAILY 09/07/16 Hydroxyzine HCl 25 mg PO TID 09/07/16 Indomethacin 25 mg PO DAILY 09/07/16 Insulin Glargine [Lantus Solostar] 26 unit SC DAILY 09/07/16 Levetiracetam 500 mg PO BEDTIME 09/07/16 Omeprazole [PriLOSEC Cap] 40 mg PO DAILY 09/07/16 Prednisone [Deltasone] 60 mg PO .DAILY ON Sunday09/07/16 Probiotic Product [Probiotic] 1 tab PO DAILY 09/07/16 Warfarin Sodium 2.5 mg PO DAILY 09/07/16 Clindamycin HCl 300 mg PO QID #28 cap 10/06/16 Additional Instructions: the patient is a 66-year-old female presenting to the emergency room secondary to oversedation with her pain and anxiety medications. The patient has been monitored and is alert and oriented and not drowsy at all at this point. She needs to discuss with her pain management doctor having a smaller dose morphine to take on an as-needed basis. She was given a liter of IV fluids for mild dehydration. She was also given a dose of gabapentin and Toradol for her leg pain. Her TSH is low and a full thyroid panel should be obtained with her primary care doctor in the coming weeks. She is subtherapeutic on her INR and this also needs to be discussed with her primary care doctor. ER warnings were given. She needs to take no further sedating medications tonight.
[2016-12-09 22:34] VITALS: BP 152/72; O2SAT 97
== END 2016-12-09 22:49 | disposition home or self-care (01) ==
LOC: ER 20:43
DX: T40.2X1A Poisoning by other opioids, accidental (unintentional), initial encounter (principal); R40.0 Somnolence; Y92.009 Unspecified place in unspecified non-institutional (private) residence as the place of occurrence of the external cause; I10 Essential (primary) hypertension; E07.9 Disorder of thyroid, unspecified; E11.9 Type 2 diabetes mellitus without complications; K21.9 Gastro-esophageal reflux disease without esophagitis; Z85.038 Personal history of other malignant neoplasm of large intestine; Z79.899 Other long term (current) drug therapy
CPT/HCPCS: 71010; 80053; 82550; 82553; 83735; 83880; 84443; 84484; 85025; 85610; 85730; J1885; J7030

== ENCOUNTER → 2016-12-14 | Outpatient (CLI) | payer MEDICARE, OTHER | END | disposition home or self-care (01) | LOC: LAB.O 12:57 | PROVIDERS: ATTEND Family Medicine | DX: M25.50 Pain in unspecified joint (principal); M79.7 Fibromyalgia ==

== ENCOUNTER 2017-01-19 14:52 | Emergency (ER) | payer MEDICARE, OTHER ==
[2017-01-19 15:15] VITALS: BP 144/71; TEMP 99.4; O2SAT 96
--- NOTE | 2017-01-19 15:36 | ED.PDOC ---
History of Present Illness - General Chief Complaint: Skin/Abrasion/Tear Stated Complaint: R great toe - split in skin Time Seen by Provider: 01/19/17 15:30 Source: patient Exam Limitations: no limitations - History of Present Illness Initial Comments: Leah Mcclellan 66 y/o female stated that she stubbed her toe right on the floor on getting up from bed denies history of fall,stated has diabetic neuropathy. Timing/Duration: just prior to arrival Severity: mild Location: feet - right Improving Factors: rest Worsening Factors: movement Associated Symptoms: other - skin tear Allergies/Adverse Reactions: Allergies Acetaminophen [From Percocet] Allergy (Intermediate, Verified 01/19/17 15:17) Shortness of Breath CI Pigment Blue 63 [From Cymbalta] Allergy (Intermediate, Verified 01/19/17 15: 17) Shortness of Breath Codeine Allergy (Intermediate, Verified 01/19/17 15:17) Hives Duloxetine [From Cymbalta] Allergy (Intermediate, Verified 01/19/17 15:17) Shortness of Breath Meperidine [From Demerol HCl] Allergy (Intermediate, Verified 01/19/17 15:17) Shortness of Breath Oxycodone [From Percocet] Allergy (Intermediate, Verified 01/19/17 15:17) Shortness of Breath Citalopram [From Celexa] Allergy (Verified 01/19/17 15:17) Other Hydrocodone Allergy (Verified 01/19/17 15:17) Other Causes shortness of breath Pregabalin [From Lyrica] Adverse Reaction (Verified 01/19/17 15:17) Other "Caused kidney failure" Home Medications: Ambulatory Orders Diazepam [Valium] 10 mg PO BID 07/06/14 Furosemide [Lasix] 80 mg PO DAILY 07/06/14 Levothyroxine Sodium [Synthroid] 175 mcg PO BEDTIME 07/06/14 Potassium Chloride [Micro-K] 10 meq PO QID 07/06/14 Morphine Sulfate [Ms Contin] 30 mg PO QID 07/08/14 Atenolol [Tenormin] 100 mg PO DAILY 08/04/14 Gabapentin [Neurontin] 100 mg PO BEDTIME 05/31/15 Linagliptin [Tradjenta] 5 mg PO DAILY 02/23/16 Trazodone HCl 50 mg PO BEDTIME 02/23/16 Uloric 40 mg PO DAILY 02/23/16 B-Complex Vitamins [Vitamin B Complex] 1 tab PO DAILY 09/07/16 Ferrous Sulfate [Iron] 65 mg PO DAILY 09/07/16 Hydroxyzine HCl 25 mg PO TID 09/07/16 Indomethacin 25 mg PO DAILY 09/07/16 Insulin Glargine [Lantus Solostar] 26 unit SC DAILY 09/07/16 Levetiracetam 500 mg PO BEDTIME 09/07/16 Omeprazole [PriLOSEC Cap] 40 mg PO DAILY 09/07/16 Probiotic Product [Probiotic] 1 tab PO DAILY 09/07/16 Cephalexin 1,000 mg PO BID #30 cap 01/19/17 Review of Systems - Review of Systems Constitutional: States: no symptoms reported EENTM: States: no symptoms reported Respiratory: States: no symptoms reported Cardiology: States: no symptoms reported Gastrointestinal/Abdominal: States: no symptoms reported Genitourinary: States: no symptoms reported Musculoskeletal: States: no symptoms reported Skin: States: see HPI Past Medical History (General) - Patient Medical History Hx Seizures: No Hx Stroke: No Hx Dementia: No Hx Asthma: No Hx of COPD: No Hx Cardiac Disorders: Yes - Hx blood clots Hx Congestive Heart Failure: No Hx Pacemaker: No Hx Hypertension: Yes Hx Thyroid Disease: Yes Hx Diabetes: Yes Hx Gastroesophageal Reflux: Yes Hx Renal Disease: Yes - Stage 2 kidney failure, per pt Hx Cancer: Yes - colon x 2 Hx of HIV: No Hx Hepatitis C: No Hx MRSA: Yes MRSA Source:: Wound Surgical History: appendectomy, cholecystectomy, colectomy, gastric bypass, Hysterectomy - Vaccination History Hx Tetanus, Diphtheria Vaccination: - Out of date Hx Influenza Vaccination: Yes - 2016 Hx Pneumococcal Vaccination: Yes - Social History Hx Tobacco Use: No Hx Chewing Tobacco Use: No Hx Alcohol Use: No Hx Substance Use: No Hx Substance Use Treatment: No Hx Depression: No Hx Physical Abuse: No Hx Emotional Abuse: No Hx Suspected Abuse: No - Activities of Daily Living Patient Lives Alone: No - Grooming Ability: Independent Eating (Feeding) Ability: Independent Toileting Ability: Independent - Female History Patient : No Family Medical History - Family History Father Family History: Unknown Living Status: Hx Family Asthma: No Hx Family Congestive Heart Failure: Yes Hx Family Hypertension: Yes Hx Family Stroke: No Hx Cardiac Disease: Yes Hx Family Diabetes: No Hx Family Cancer: Yes - colon several family members Mother Family History: Unknown Living Status: Hx Family Asthma: Yes Hx Family Congestive Heart Failure: Yes Hx Family Hypertension: Yes Hx Family Stroke: No Hx Cardiac Disease: Yes - hx CABG Hx Family Diabetes: No Hx Family Cancer: No Hx Family;Other: emphysema Physical Exam - Physical Exam General Appearance: Alert, Comfortable, No apparent distress Eyes, Ears, Nose, Throat Exam: PERRL/EOMI, normal ENT inspection Neck: non-tender, supple Cardiovascular/Chest: normal peripheral pulses, regular rate, rhythm, no murmur Respiratory: lungs clear, normal breath sounds Gastrointestinal/Abdominal: non tender, soft, no organomegaly Back Exam: normal inspection, no CVA tenderness Extremity: non-tender, no calf tenderness Neurologic: other - decrease sensation both feet from neuropathy Skin Exam: warm/dry, normal color Skin Problem Location: lower extremities - right toe Skin Character: other - skin tear right great toe no bleeding noted Progress - Progress Progress: 01/19/17 15:48 Last Vital Signs Temp 99.4 F 01/19/17 15:08 Pulse 67 01/19/17 15:08 Resp 20 01/19/17 15:08 BP 144/71 01/19/17 15:08 Pulse Ox 96 01/19/17 15:08 Wound cleanse with betadine wrapped with xerofoam and coban. Departure - Departure Clinical Impression: Tear of skin of plantar aspect of right foot Qualifiers: Encounter type: initial encounter Qualified Code(s): S91.311A - Laceration without foreign body, right foot, initial encounter Time of Disposition: 15:51 Disposition: Discharge to Home or Self Care Condition: Fair Departure Forms: ED Discharge - Pt. Copy, Patient Portal Self Enrollment Instructions: Skin Wound, DI for Avulsion Laceration (Not Requiring Sutures), DI for Minor Laceration Referrals: Yahir Thompson III, MD [Primary Care Provider] - 1-2 Weeks Prescriptions: Cephalexin 1,000 mg PO BID #30 cap Home Medications: Ambulatory Orders Diazepam [Valium] 10 mg PO BID 07/06/14 Furosemide [Lasix] 80 mg PO DAILY 07/06/14 Levothyroxine Sodium [Synthroid] 175 mcg PO BEDTIME 07/06/14 Potassium Chloride [Micro-K] 10 meq PO QID 07/06/14 Morphine Sulfate [Ms Contin] 30 mg PO QID 07/08/14 Atenolol [Tenormin] 100 mg PO DAILY 08/04/14 Gabapentin [Neurontin] 100 mg PO BEDTIME 05/31/15 Linagliptin [Tradjenta] 5 mg PO DAILY 02/23/16 Trazodone HCl 50 mg PO BEDTIME 02/23/16 Uloric 40 mg PO DAILY 02/23/16 B-Complex Vitamins [Vitamin B Complex] 1 tab PO DAILY 09/07/16 Ferrous Sulfate [Iron] 65 mg PO DAILY 09/07/16 Hydroxyzine HCl 25 mg PO TID 09/07/16 Indomethacin 25 mg PO DAILY 09/07/16 Insulin Glargine [Lantus Solostar] 26 unit SC DAILY 09/07/16 Levetiracetam 500 mg PO BEDTIME 09/07/16 Omeprazole [PriLOSEC Cap] 40 mg PO DAILY 09/07/16 Probiotic Product [Probiotic] 1 tab PO DAILY 09/07/16 Cephalexin 1,000 mg PO BID #30 cap 01/19/17 Additional Instructions: Keep appointment with production support specialist next week;Return to emergency room as needed
[2017-01-19] MEDS ORDERED: TETANUS,DIPHTHERIA,PERTUSSIS 1 EA SYG IM ONE (15:52)
== END 2017-01-19 16:25 | disposition home or self-care (01) ==
LOC: ER 14:52
DX: S91.111A Laceration without foreign body of right great toe without damage to nail, initial encounter (principal); E11.40 Type 2 diabetes mellitus with diabetic neuropathy, unspecified; I12.9 Hypertensive chronic kidney disease with stage 1 through stage 4 chronic kidney disease, or unspecified chronic kidney disease; N18.2 Chronic kidney disease, stage 2 (mild); E07.9 Disorder of thyroid, unspecified; K21.9 Gastro-esophageal reflux disease without esophagitis; Z86.14 Personal history of Methicillin resistant Staphylococcus aureus infection; Z23 Encounter for immunization; Z85.038 Personal history of other malignant neoplasm of large intestine; Z79.899 Other long term (current) drug therapy; Z79.4 Long term (current) use of insulin; X58.XXXA Exposure to other specified factors, initial encounter

== ENCOUNTER → 2017-02-09 | Outpatient (CLI) | payer MEDICARE, OTHER | END | disposition home or self-care (01) | LOC: LAB.O 10:27 | PROVIDERS: ATTEND Family Medicine | DX: R19.7 Diarrhea, unspecified (principal) ==

== ENCOUNTER → 2017-02-12 | Outpatient (CLI) | payer MEDICARE, OTHER | END | disposition home or self-care (01) | LOC: GMAL 15:06 | PROVIDERS: ATTEND Family Medicine | DX: L72.3 Sebaceous cyst (principal) ==

== ENCOUNTER → 2017-02-14 | Outpatient (CLI) | payer MEDICARE, OTHER | END | disposition home or self-care (01) | LOC: GMAL 16:45 | PROVIDERS: ATTEND Family Medicine | DX: D53.9 Nutritional anemia, unspecified (principal) ==

== ENCOUNTER → 2017-02-27 | Outpatient (CLI) | payer MEDICARE, OTHER | END | disposition home or self-care (01) | LOC: NC 13:17 | PROVIDERS: ATTEND Family Medicine | DX: R30.0 Dysuria (principal) ==

== ENCOUNTER → 2017-03-13 | Outpatient (CLI) | payer MEDICARE, OTHER | END | disposition home or self-care (01) | LOC: LAB.O 17:14 | PROVIDERS: ATTEND Internal Medicine Gastroenterology | DX: R19.7 Diarrhea, unspecified (principal) ==

== ENCOUNTER → 2017-04-14 | Outpatient (CLI) | payer MEDICARE, OTHER | LOC: NC 17:16 | PROVIDERS: ATTEND Family Medicine | DX: R30.0 Dysuria (principal) ==

== ENCOUNTER → 2017-05-16 | Outpatient (CLI) | payer MEDICARE, OTHER | LOC: GMAL 10:39 | PROVIDERS: ATTEND Family Medicine | DX: R74.8 Abnormal levels of other serum enzymes (principal); E55.9 Vitamin D deficiency, unspecified ==

== ENCOUNTER → 2017-06-29 | Outpatient (CLI) | payer MEDICARE, OTHER | LOC: GMAL 11:11 | PROVIDERS: ATTEND Family Medicine | DX: E11.621 Type 2 diabetes mellitus with foot ulcer (principal); I12.9 Hypertensive chronic kidney disease with stage 1 through stage 4 chronic kidney disease, or unspecified chronic kidney disease; N18.9 Chronic kidney disease, unspecified ==

== ENCOUNTER 2017-08-11 13:06 | Emergency (ER) | payer MEDICARE, OTHER ==
[2017-08-11 13:21] VITALS: BP 101/66; TEMP 98.4; O2SAT 94
--- NOTE | 2017-08-11 14:13 | RAD ---
EXAM: XR Left Hand, 2 Views CLINICAL HISTORY: The patient is 66 years old and is Female; fall TECHNIQUE: Frontal and lateral views of the left hand. COMPARISON: RIGHT hand x-ray from 04/23/2015. FINDINGS: BONES/JOINTS: No fracture or dislocation is identified in the LEFT hand. There is marked radiocarpal joint space narrowing. Degenerative changes of the carpal metacarpal joints are noted. SOFT TISSUES: No radiopaque foreign body noted. No appreciable soft tissue swelling. IMPRESSION: No fracture or dislocation is identified in the LEFT hand. Electronically signed by: Torito Terrell MD 08/11/2017 2:12 PM CDT
--- NOTE | 2017-08-11 14:17 | RAD ---
EXAM DESCRIPTION: Wrist,Left 2 Views CLINICAL HISTORY: fall COMPARISON: None FINDINGS: AP and lateral views of the left wrist were submitted. There are degenerative changes of the first carpometacarpal junction. There is narrowing of the radiocarpal joint. There is no acute fracture or dislocation. There is atherosclerosis. There is no radiopaque foreign body material. IMPRESSION: No acute fracture or dislocation. Electronically signed by: Kanu Palma MD 08/11/2017 2:16 PM CDT
--- NOTE | 2017-08-11 14:23 | RAD ---
EXAM: XR Left Knee, 1 or 2 views CLINICAL HISTORY: The patient is 66 years old and is Female; fall TECHNIQUE: Frontal and/or lateral views of the left knee. COMPARISON: Prior study from 09/14/2015 FINDINGS: BONES/JOINTS: Total LEFT knee arthroplasty is in place and in alignment. No fracture or dislocation identified in the LEFT knee. No knee effusion. SOFT TISSUES: Unremarkable. OTHER FINDINGS: No acute complication identified. IMPRESSION: 1. Total LEFT knee arthroplasty is in place and in alignment. 2. No acute complication identified. Electronically signed by: Torito Terrell MD 08/11/2017 2:22 PM CDT
--- NOTE | 2017-08-11 14:29 | ED.PDOC ---
History of Present Illness - General Chief Complaint: Trauma Stated Complaint: s/p fall Time Seen by Provider: 08/11/17 13:24 Source: patient Exam Limitations: no limitations - History of Present Illness Initial Comments: the patient is a 66-year-old female that was at a [place] in [employer] [place] when she was accidentally knocked over. She landed on her left side and has some pain in her left wrist and hand where she tried to catch herself as well as just above the right knee. She can ambulate. She has full range of motion of the hand and wrist. She does have chronic arthritic changes. No significant skin tear or laceration. No head injury and no neck pain. Timing/Duration: unsure Severity: mild Improving Factors: immobilization Worsening Factors: movement Associated Symptoms: denies symptoms Allergies/Adverse Reactions: Allergies Acetaminophen [From Percocet] Allergy (Intermediate, Verified 01/19/17 15:17) Shortness of Breath CI Pigment Blue 63 [From Cymbalta] Allergy (Intermediate, Verified 01/19/17 15: 17) Shortness of Breath Codeine Allergy (Intermediate, Verified 01/19/17 15:17) Hives Duloxetine [From Cymbalta] Allergy (Intermediate, Verified 01/19/17 15:17) Shortness of Breath Meperidine [From Demerol HCl] Allergy (Intermediate, Verified 01/19/17 15:17) Shortness of Breath Oxycodone [From Percocet] Allergy (Intermediate, Verified 01/19/17 15:17) Shortness of Breath Citalopram [From Celexa] Allergy (Verified 01/19/17 15:17) Other Hydrocodone Allergy (Verified 01/19/17 15:17) Other Causes shortness of breath Pregabalin [From Lyrica] Adverse Reaction (Verified 01/19/17 15:17) Other "Caused kidney failure" Home Medications: Ambulatory Orders Diazepam [Valium] 10 mg PO BID 07/06/14 Furosemide [Lasix] 80 mg PO DAILY 07/06/14 Levothyroxine Sodium [Synthroid] 175 mcg PO BEDTIME 07/06/14 Potassium Chloride [Micro-K] 10 meq PO QID 07/06/14 Morphine Sulfate [Ms Contin] 30 mg PO QID 07/08/14 Atenolol [Tenormin] 100 mg PO DAILY 08/04/14 Gabapentin [Neurontin] 100 mg PO BEDTIME 05/31/15 Linagliptin [Tradjenta] 5 mg PO DAILY 02/23/16 Trazodone HCl 50 mg PO BEDTIME 02/23/16 Uloric 40 mg PO DAILY 02/23/16 B-Complex Vitamins [Vitamin B Complex] 1 tab PO DAILY 09/07/16 Ferrous Sulfate [Iron] 65 mg PO DAILY 09/07/16 Hydroxyzine HCl 25 mg PO TID 09/07/16 Indomethacin 25 mg PO DAILY 09/07/16 Insulin Glargine [Lantus Solostar] 26 unit SC DAILY 09/07/16 Levetiracetam 500 mg PO BEDTIME 09/07/16 Omeprazole [PriLOSEC Cap] 40 mg PO DAILY 09/07/16 Probiotic Product [Probiotic] 1 tab PO DAILY 09/07/16 Cephalexin 1,000 mg PO BID #30 cap 01/19/17 Review of Systems - Review of Systems Constitutional: States: no symptoms reported EENTM: States: no symptoms reported Respiratory: States: no symptoms reported Cardiology: States: no symptoms reported Gastrointestinal/Abdominal: States: no symptoms reported Genitourinary: States: no symptoms reported Musculoskeletal: States: see HPI Skin: States: no symptoms reported Neurological: States: no symptoms reported Endocrine: States: no symptoms reported All other Systems: No Change from Baseline Past Medical History (General) - Patient Medical History Hx Seizures: No Hx Stroke: No Hx Dementia: No Hx Asthma: No Hx of COPD: No Hx Cardiac Disorders: Yes - Hx blood clots Hx Congestive Heart Failure: No Hx Pacemaker: No Hx Hypertension: Yes Hx Thyroid Disease: Yes Hx Diabetes: Yes Hx Gastroesophageal Reflux: Yes Hx Renal Disease: Yes - Stage 2 kidney failure, per pt Hx Cancer: Yes - colon x 2 Hx of HIV: No Hx Hepatitis C: No Hx MRSA: Yes MRSA Source:: Wound Surgical History: cholecystectomy, colectomy, tonsillectomy - Vaccination History Hx Tetanus, Diphtheria Vaccination: Yes Hx Influenza Vaccination: Yes Hx Pneumococcal Vaccination: Yes - Social History Hx Tobacco Use: No Hx Chewing Tobacco Use: No Hx Alcohol Use: No Hx Substance Use: No Hx Substance Use Treatment: No Hx Depression: No Hx Physical Abuse: No Hx Emotional Abuse: No Hx Suspected Abuse: No - Female History Patient : No Family Medical History - Family History Father Family History: Unknown Living Status: Hx Family Asthma: No Hx Family Congestive Heart Failure: Yes Hx Family Hypertension: Yes Hx Family Stroke: No Hx Cardiac Disease: Yes Hx Family Diabetes: No Hx Family Cancer: Yes - colon several family members Mother Family History: Unknown Living Status: Hx Family Asthma: Yes Hx Family Congestive Heart Failure: Yes Hx Family Hypertension: Yes Hx Family Stroke: No Hx Cardiac Disease: Yes - hx CABG Hx Family Diabetes: No Hx Family Cancer: No Hx Family;Other: emphysema Physical Exam - Physical Exam General Appearance: Alert, Comfortable, No apparent distress Eye Exam: bilateral normal Ears, Nose, Throat: hearing grossly normal, normal ENT inspection Neck: full range of motion, supple Respiratory: no respiratory distress, no accessory muscle use Cardiovascular/Chest: normal peripheral pulses, no edema, other - egular rate Peripheral Pulses: radial,right: 2+, radial,left: 2+, dorsalis pedis,right: 2+, dorsalis pedis,left: 2+ Gastrointestinal/Abdominal: non tender, soft Rectal Exam: deferred Back Exam: normal inspection, no CVA tenderness Extremity: no pedal edema, no calf tenderness, normal capillary refill, other - see history of present illness. There is no deformity of the hand and wrist or knee. She has had a knee replacement on that side. Passive and active range of motion are preserved. There are chronic osteoarthritic changes. 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 She has pain in her left hand wrist and left knee. X-ray shows no evidence of any fracture or dislocation at these sites. There does not appear to be any ligamentous stability. This appears to be soft tissue injury only. She does need ambulate carefully. [id number] anti- inflammatories may prove helpful with discomfort over the next couple of weeks. ER warnings were given. She should plan on following up with her primary care doctor next week. Departure - Departure Clinical Impression: Left wrist sprain Qualifiers: Encounter type: initial encounter Qualified Code(s): S63.502A - Unspecified sprain of left wrist, initial encounter Disposition: Discharge to Home or Self Care Condition: Fair Departure Forms: ED Discharge - Pt. Copy, Patient Portal Self Enrollment Diet: regular diet Activity: increase activity as tolerated Referrals: Yahir Thompson III, MD [Primary Care Provider] - 1-2 Weeks Home Medications: Ambulatory Orders Diazepam [Valium] 10 mg PO BID 07/06/14 Furosemide [Lasix] 80 mg PO DAILY 07/06/14 Levothyroxine Sodium [Synthroid] 175 mcg PO BEDTIME 07/06/14 Potassium Chloride [Micro-K] 10 meq PO QID 07/06/14 Morphine Sulfate [Ms Contin] 30 mg PO QID 07/08/14 Atenolol [Tenormin] 100 mg PO DAILY 08/04/14 Gabapentin [Neurontin] 100 mg PO BEDTIME 05/31/15 Linagliptin [Tradjenta] 5 mg PO DAILY 02/23/16 Trazodone HCl 50 mg PO BEDTIME 02/23/16 Uloric 40 mg PO DAILY 02/23/16 B-Complex Vitamins [Vitamin B Complex] 1 tab PO DAILY 09/07/16 Ferrous Sulfate [Iron] 65 mg PO DAILY 09/07/16 Hydroxyzine HCl 25 mg PO TID 09/07/16 Indomethacin 25 mg PO DAILY 09/07/16 Insulin Glargine [Lantus Solostar] 26 unit SC DAILY 09/07/16 Levetiracetam 500 mg PO BEDTIME 09/07/16 Omeprazole [PriLOSEC Cap] 40 mg PO DAILY 09/07/16 Probiotic Product [Probiotic] 1 tab PO DAILY 09/07/16 Cephalexin 1,000 mg PO BID #30 cap 01/19/17 Additional Instructions: the patient is a 66-year-old female that was knocked down at a [place]. She has pain in her left hand wrist and left knee. X-ray shows no evidence of any fracture or dislocation at these sites. There does not appear to be any ligamentous stability. This appears to be soft tissue injury only. She does need ambulate carefully. [id number] anti- inflammatories may prove helpful with discomfort over the next couple of weeks. ER warnings were given. She should plan on following up with her primary care doctor next week.
== END 2017-08-11 14:53 | disposition home or self-care (01) ==
LOC: ER 13:06
DX: S63.502A Unspecified sprain of left wrist, initial encounter (principal); E07.9 Disorder of thyroid, unspecified; I12.9 Hypertensive chronic kidney disease with stage 1 through stage 4 chronic kidney disease, or unspecified chronic kidney disease; E11.22 Type 2 diabetes mellitus with diabetic chronic kidney disease; N18.2 Chronic kidney disease, stage 2 (mild); K21.9 Gastro-esophageal reflux disease without esophagitis; Z85.038 Personal history of other malignant neoplasm of large intestine; Z86.718 Personal history of other venous thrombosis and embolism; Z79.4 Long term (current) use of insulin; Z79.899 Other long term (current) drug therapy; W03.XXXA Other fall on same level due to collision with another person, initial encounter; Y92.89 Other specified places as the place of occurrence of the external cause

== ENCOUNTER → 2017-08-30 | Outpatient (CLI) | payer MEDICARE, OTHER | LOC: LAB.O 15:22 | PROVIDERS: ATTEND Psychiatry & Neurology Neurology | DX: M45.0 Ankylosing spondylitis of multiple sites in spine (principal); G60.3 Idiopathic progressive neuropathy; M35.1 Other overlap syndromes; M81.8 Other osteoporosis without current pathological fracture; M51.16 Intervertebral disc disorders with radiculopathy, lumbar region; G70.00 Myasthenia gravis without (acute) exacerbation; G04.89 Other myelitis; G72.9 Myopathy, unspecified; M54.81 Occipital neuralgia; H46.9 Unspecified optic neuritis ==

== ENCOUNTER → 2017-09-13 | Outpatient (CLI) | payer MEDICARE, OTHER | LOC: NC 12:17 | PROVIDERS: ATTEND Family Medicine | DX: R30.0 Dysuria (principal); R19.7 Diarrhea, unspecified; R19.5 Other fecal abnormalities ==

== ENCOUNTER → 2017-09-26 | Outpatient (CLI) | payer MEDICARE, OTHER | LOC: GMAL 14:05 | PROVIDERS: ATTEND Family Medicine | DX: D51.0 Vitamin B12 deficiency anemia due to intrinsic factor deficiency (principal); E03.9 Hypothyroidism, unspecified; N30.00 Acute cystitis without hematuria; E34.9 Endocrine disorder, unspecified ==

== ENCOUNTER → 2017-10-17 | Outpatient (CLI) | payer MEDICARE, OTHER ==
--- NOTE | 2017-10-18 11:01 | CT ---
EXAM DESCRIPTION: Abdoment/Pelvis w/o Contrast CLINICAL HISTORY: ELEVATED LFT COMPARISON: MRI April 14, 2016 TECHNIQUE: CT of the abdomen and Pelvis was performed without IV contrast. This exam was performed according to our departmental dose-optimization program, which includes automated exposure control, adjustment of the mA and/or kV according to patient size and/or use of iterative reconstruction technique. FINDINGS: There is a calcified granuloma in the lingular segment of the left upper lobe. The lung bases are otherwise unremarkable. Postoperative changes in the anterior abdominal wall over the right upper quadrant. No pneumoperitoneum, adenopathy or ascites. Mural calcifications in the abdominal aorta without aneurysm. Postoperative changes are noted in the stomach without gastric wall thickening. The gallbladder is surgically absent. The common bile duct is dilated, measuring up to 2.4 cm diameter at the level of the pancreatic head. No intraductal calcification. Mild central intrahepatic biliary duct dilation. The liver is otherwise unremarkable for noncontrast technique. The spleen is not enlarged. No pancreatitis or other pancreatic lesion. The adrenals and kidneys are unremarkable. No dilated small bowel loops or mesenteric inflammation. No bladder wall thickening. The uterus and ovaries are not seen, correlate with surgical history. Moderate diverticulosis without diverticulitis. No appendicitis. Degenerative and postoperative changes are noted in the lumbar spine at multiple levels. IMPRESSION: Status post cholecystectomy with central intra and extrahepatic biliary duct dilation, not significantly changed from an MRI performed April 14, 2016. No calcified intraductal gallstone or pancreatitis. Otherwise unremarkable appearance of the liver accounting for noncontrast technique. If symptoms persist or worsen, follow-up CT with IV contrast, MRCP or ERCP should be considered. Colonic diverticulosis without diverticulitis and other nonacute findings as detailed above. Electronically signed by: Wolf Palmer MD 10/18/2017 10:59 AM CDT
== END ==
LOC: CT 10:27
PROVIDERS: ATTEND Family Medicine
DX: R94.5 Abnormal results of liver function studies (principal); K57.30 Diverticulosis of large intestine without perforation or abscess without bleeding; Z90.49 Acquired absence of other specified parts of digestive tract

== ENCOUNTER → 2017-11-12 | Outpatient (CLI) | payer MEDICARE, OTHER | LOC: NC 09:52 | PROVIDERS: ATTEND Family Medicine | DX: E11.621 Type 2 diabetes mellitus with foot ulcer (principal); E11.22 Type 2 diabetes mellitus with diabetic chronic kidney disease; I12.9 Hypertensive chronic kidney disease with stage 1 through stage 4 chronic kidney disease, or unspecified chronic kidney disease; M10.9 Gout, unspecified; N18.9 Chronic kidney disease, unspecified ==

== ENCOUNTER → 2017-11-16 | Outpatient (CLI) | payer MEDICARE, OTHER ==
--- NOTE | 2017-11-16 10:21 | CT ---
EXAM DESCRIPTION: Abdomen w/o Contrast CLINICAL HISTORY: GENERALIZED ABD PAIN. COMPARISON: October 17, 2017 TECHNIQUE: Noncontrast transaxial CT images of the abdomen are obtained This exam was performed according to our departmental dose-optimization program, which includes automated exposure control, adjustment of the mA and/or kV according to patient size and/or use of iterative reconstruction technique . FINDINGS: The visualized lung bases again demonstrate calcified pulmonary nodule in the lingula of the left upper lobe. Given the limitations of a noncontrast exam the liver and spleen are unremarkable. Postcholecystectomy changes are seen. There remains moderate intra and extrahepatic biliary ductal dilatation with distal common bile duct at the head of the pancreas measuring 1.4 cm stable compared to multiple prior examinations including MRI from April 2016. The pancreas and adrenal glands are unremarkable. Borderline left periaortic lymph node in the upper abdomen measuring 9 mm is again seen. Moderate atherosclerotic disease is noted. Kidneys are unremarkable. No nephrolithiasis or obvious ureteral obstruction. Nonspecific less than 1 cm retroperitoneal lymph nodes are unchanged from previous. Surgical suture line in the upper portion of the stomach is seen. Question small hiatal hernia. Surgical suture line in the mid right colon is noted. Moderate scattered diverticuli of the colon without associated inflammatory changes or fluid collections are seen. Moderate to severe spondylitic changes and facet arthropathy of the lumbar spine is seen with chronic spondylolysis and grade 1-2 spondylolisthesis at L5-S1 IMPRESSION: Stable dilated intrahepatic and extrahepatic biliary ductal system with the patient status post cholecystectomy. No interval change from prior examinations. Postsurgical changes to the stomach are noted and appears similar to previous. Colon diverticulosis without CT evidence of diverticulitis. Borderline retroperitoneal lymphadenopathy is stable from previous. Postsurgical changes to the right colon are noted. Electronically signed by: Narayan Cohen MD 11/16/2017 10:19 AM CDT
== END ==
LOC: CT 08:30
PROVIDERS: ATTEND Internal Medicine Gastroenterology
DX: K57.30 Diverticulosis of large intestine without perforation or abscess without bleeding (principal); R10.84 Generalized abdominal pain; Z98.890 Other specified postprocedural states

== ENCOUNTER → 2017-11-28 | Outpatient (CLI) | payer MEDICARE, OTHER | LOC: NC 13:33 | PROVIDERS: ATTEND Family Medicine | DX: N39.0 Urinary tract infection, site not specified (principal); E11.621 Type 2 diabetes mellitus with foot ulcer; N18.9 Chronic kidney disease, unspecified; Z91.81 History of falling ==

== ENCOUNTER → 2017-12-12 | Outpatient (CLI) | payer MEDICARE, OTHER ==
--- NOTE | 2017-12-13 08:42 | CT ---
EXAM DESCRIPTION: Chest w/o Contrast CLINICAL HISTORY: 67 years Female, RT [employer]ERNO[employer]IC[employer] COMPARISON: 16 November 2017 TECHNIQUE: Transaxial images were obtained without intravenous contrast media. Sagittal and coronal reconstruction was performed.This exam was performed according to our departmental dose-optimization program, which includes automated exposure control, adjustment of the mA and/or kV according to patient size and/or use of iterative reconstruction technique. FINDINGS: The thyroid is imaged is normal. No pathologic axillary adenopathy is seen. No hilar or mediastinal adenopathy is seen. No pleural fluid is seen. Numerous surgical clips are observed in the region of the gastroesophageal junction. A biliary ductal dilatation is noted. The patient is postcholecystectomy. No focal infiltrate is seen. A large calcified granuloma is seen in the lingula. Degenerative changes are observed in both sternoclavicular joints. Degenerative changes are seen in the thoracic spine. IMPRESSION: 1. Degenerative changes are observed in the sternoclavicular joints. 2. A large calcified granuloma is seen in the lingula. 3. The patient is postcholecystectomy and biliary ductal dilatation is observed. It remains unchanged from a prior CT of the abdomen. Electronically signed by: Yahir Agrawal MD 12/13/2017 8:41 AM CDT
== END ==
LOC: CT 13:54
PROVIDERS: ATTEND Physician Assistant
DX: R22.2 Localized swelling, mass and lump, trunk (principal); J84.10 Pulmonary fibrosis, unspecified; Z98.890 Other specified postprocedural states

== ENCOUNTER → 2017-12-26 | Outpatient (CLI) | payer MEDICARE, OTHER ==
--- NOTE | 2017-12-26 13:49 | MRI ---
EXAM DESCRIPTION: Lumbar Spine w/o Contrast : Magnetic Resonance Imaging. CLINICAL HISTORY: PARESTHESIA COMPARISON: MRI scan of the cervical spine on the same visit. Fluoroscopic procedural images 4 lumbar spine pain management, June to July 2015. TECHNIQUE: Multiplanar, multiple standard sequences, non contrast MRI, lumbar spine. FINDINGS: L5-S1: Grade 2 anterolisthesis 1.5 cm. Bilateral neural foraminal stenosis and compromise of the exiting L5 nerves. Moderate canal narrowing. Bilateral facet arthrosis more right than left with bilateral L5 pars interarticularis spondylolysis. L4-5: Disc desiccation with disc space preserved. No significant bulging. Bilateral facet arthrosis. Bilateral foramina and canal are patent. L3-4: Grade 1 anterolisthesis 4 mm. Disc desiccation and moderate disc space loss with Schmorl's node in the inferior L4 endplate. Anterior Modic type II endplate reactive changes. Posterior broad-based bulge of the disc 4 mm partially uncovered by L3 position. Bilateral ligament hypertrophy and advanced facet arthrosis. AP canal diameter 7.5 mm. Mild to moderate canal stenosis. Bilateral moderate to severe foraminal narrowing secondary to disc bulging and anterolisthesis. Bilateral deformity of the L3 pars interarticularis with possible spondylolysis. L2-3: Minimal disc space loss with disc desiccation and minimal anterior bulging. Posterior broad-based 5 mm disc bulge abutting the thecal sac. Bilateral mild facet arthrosis and ligament hypertrophy. AP canal diameter 8.5 mm. Moderate to severe bilateral foraminal narrowing. L1-2: Disc space preserved with normal signal in the disc. Minimal hypertrophy of the flavum ligaments. No significant canal narrowing. Bilateral foramina are patent. T12-L1: Normal signal in the disc with disc space preserved. Trace posterior bulge. Posterior elements are unremarkable. Canal and foramina are patent. Conus terminates at L1. Included thoracic discs show desiccation minimal disc space loss anterior bulging and minimal posterior bulging. No significant scoliosis. Normal lumbar lordosis. Paravertebral soft tissues no muscle atrophy.. Otherwise normal marrow signal in the remaining vertebral bodies and the posterior elements. Vertebral bodies are not compressed at any level. IMPRESSION: 1. Multiple levels of disc bulging, spondylosis, significant anterolisthesis at 2 levels. And multiple levels of facet arthrosis and flavum ligament hypertrophy. 2. Grade 2 anterolisthesis L5-S1 1.5 cm. Bilateral compromise of the exiting L5 nerves with neural foraminal stenosis. Moderate canal narrowing. Bilateral L5 pars spondylolysis. 3. Grade 1 anterolisthesis at L3-4. Posterior broad-based bulge of the disc. Anterior spondylosis and Schmorl's node. Bilateral moderate to severe foraminal narrowing. Multifactorial moderate to severe canal stenosis. Deformity and possible spondylolysis of the bilateral L3 pars interarticulares. 4.Posterior broad-based L2-3 broad-based disc bulge. Multifactorial mild to moderate central canal stenosis. Moderate to severe bilateral foraminal narrowing. Electronically signed by: Landry Rose MD 12/26/2017 1:47 PM CDT
--- NOTE | 2017-12-26 14:09 | MRI ---
EXAM DESCRIPTION: Cervical Spine: MRI. CLINICAL HISTORY: PARESTHESIA COMPARISON: MRI scan lumbar spine on this visit. TECHNIQUE: Multiplanar MRI, multiple sequences, non-contrast High-field. FINDINGS: C3-4: Normal signal in the disc and disc space preserved. Small bilateral uncinate spurs with minimal neural foraminal narrowing. Canal is patent. Facets are negative. C4-5: Normal signal in the disc with disc space preserved. Left uncinate spur and left facet arthrosis resulting in left neural foraminal stenosis. Canal and right neuroforamen are patent. Normal right facet. C5-6: Normal signal in the disc with disc space preserved. Advanced left facet arthrosis and uncinate spur resulting in severe left neural foraminal stenosis. Small fluid collection posterior to the facet joint. No posterior disc bulge with minimal anterior bulge. Canal and neural foramina are patent. Normal right facet. C6-7: Disc desiccation and minimal disc space loss. Anterior bulging with endplate ridging. Bilateral uncinate spurs larger on the right than the left with moderate left neural foraminal narrowing and mild right neural foraminal stenosis. Posterior broad-based disc bulge abutting the cord with moderate canal narrowing. Facets negative. Normal signal in the remaining discs with no bulging. Disc spaces preserved. Canal and neural foramina are patent. Facets facets are unremarkable at C2-3 and C7-T1 with bilateral arthrosis T1-2. Spinal alignment reduced cervical lordosis.. No cord compression or cord edema. Atlantoaxial joint with minimal hypertrophy narrowing the anterior extradural space.. Base of the cerebellar tonsils is slightly above the foramen magnum. Paravertebral soft tissues unremarkable. Vertebral bodies are not compressed at any level. Normal marrow signal in the remaining vertebral bodies and the posterior elements. IMPRESSION: 1. Small bilateral uncinate spurs at C3-4 with minimal neural foraminal narrowing. 2. Left facet arthrosis and uncinate spur resulting in neural foraminal stenosis at C4-5. Correlate for left C5 radiculopathy. 3. Advanced left facet arthrosis and uncinate spur at C5-6 causing left neural foraminal stenosis. Correlate for left C6 radiculopathy. 4. Bilateral uncinate spurs larger on the right with mild right neural foraminal stenosis at C6-7. Correlate for right C7 radiculopathy. Facets are negative. Electronically signed by: Landry Rose MD 12/26/2017 2:08 PM CDT
== END ==
LOC: MRI 09:08
PROVIDERS: ATTEND Family Medicine
DX: R20.2 Paresthesia of skin (principal); M48.02 Spinal stenosis, cervical region; M48.062 Spinal stenosis, lumbar region with neurogenic claudication; M43.16 Spondylolisthesis, lumbar region; M51.26 Other intervertebral disc displacement, lumbar region

== ENCOUNTER → 2018-01-01 | Outpatient (CLI) | payer MEDICARE, OTHER | LOC: GMAL 14:35 | PROVIDERS: ATTEND Family Medicine | DX: R31.0 Gross hematuria (principal) ==

== ENCOUNTER → 2018-01-14 | Outpatient (CLI) | payer MEDICARE, OTHER | LOC: NC 09:47 | PROVIDERS: ATTEND Family Medicine | DX: E11.22 Type 2 diabetes mellitus with diabetic chronic kidney disease (principal); I50.9 Heart failure, unspecified; I12.9 Hypertensive chronic kidney disease with stage 1 through stage 4 chronic kidney disease, or unspecified chronic kidney disease; N18.9 Chronic kidney disease, unspecified; M10.9 Gout, unspecified ==

== ENCOUNTER → 2018-01-21 | Outpatient (CLI) | payer MEDICARE, OTHER ==
--- NOTE | 2018-01-21 15:11 | US ---
EXAM DESCRIPTION: Venous,Lower Extremity LT: ULTRASOUND. CLINICAL HISTORY: EDEMA COMPARISON: None Available. TECHNIQUE: Bolanos-scale and doppler sonographic evaluation of the deep venous system of the left lower extremity. FINDINGS: Doppler evaluation shows normal color flow and normal phasicity and augmentation of the left common femoral vein, femoral vein, popliteal vein, greater saphenous vein, peroneal, and posterior tibial vein. The left lower extremity deep veins showed normal occlusion with transducer pressure. Bolanos-scale survey showed no echogenic thrombus within these veins. IMPRESSION: 1. Duplex ultrasound evaluation of the left lower extremity deep venous system showing no evidence of thrombosis. Electronically signed by: Landry Rose MD 01/21/2018 3:09 PM [employer]
== END ==
LOC: US 12:27
PROVIDERS: ATTEND Family Medicine
DX: R60.0 Localized edema (principal)

== ENCOUNTER 2018-02-05 07:01 | Emergency (ER) | payer MEDICARE, OTHER ==
[2018-02-05 07:36] VITALS: TEMP 97.8
--- NOTE | 2018-02-05 07:51 | ED.PDOC ---
History of Present Illness - General Chief Complaint: Abdominal Pain Time Seen by Provider: 02/05/18 07:46 Information Source: patient, RN notes reviewed Additional Information: 67 YEAR OLD COMPLAINTS OF ABDOMINAL PAIN CENTRAL ABDOMEN ASSOCIATED WITH LOOSE STOOLS NAUSEA ONSET 3 DAYS AGO SHE HAS HAD COLON CANCER FIRST TIME 2003 THAT WAS TREATED IN [place] WITH A RIGHT HEMICOLECTOMY SECOND TIME IT WAS IN THE SIGMOID COLON THAT WAS RESECTED BY DR PEREZ HERE IN 2013 SHE HAS HAD A COLONOSCOPY BY DR HOSKINS IN 2016 DURING THAT TIME SHE HAD A POLYP IN ADDITION SHE HAS HAD RIGHT FOOT TOES RESECTED HISTORY OF TYPE II DM HTN NEUROPATHY FAMILY HISTORY SIS OF COLON CANCER - History of Present Illness Abdominal Pain Onset Location: periumbilical Pain Radiation: no radiation Timing/Duration: days Improving Factors: nothing Worsening Factors: nothing Associated Symptoms: diarrhea, nausea/vomiting Review of Systems - Review of Systems Constitutional: States: see HPI EENTM: States: no symptoms reported Respiratory: States: no symptoms reported Cardiology: States: no symptoms reported Gastrointestinal/Abdominal: States: see HPI Genitourinary: States: no symptoms reported Musculoskeletal: States: no symptoms reported Skin: States: no symptoms reported Neurological: States: no symptoms reported Endocrine: States: no symptoms reported Hematologic/Lymphatic: States: no symptoms reported Past Medical History (General) - Patient Medical History Hx Seizures: No Hx Stroke: No Hx Dementia: No Hx Asthma: No Hx of COPD: No Hx Cardiac Disorders: Yes - Hx blood clots Hx Congestive Heart Failure: No Hx Pacemaker: No Hx Hypertension: Yes Hx Thyroid Disease: Yes Hx Diabetes: Yes Hx Gastroesophageal Reflux: Yes Hx Renal Disease: Yes - Stage 2 kidney failure, per pt Hx Cancer: Yes - colon x 2 Hx of HIV: No Hx Hepatitis C: No Hx MRSA: Yes MRSA Source:: Wound - Vaccination History Hx Tetanus, Diphtheria Vaccination: Yes Hx Influenza Vaccination: Yes Hx Pneumococcal Vaccination: Yes - Social History Hx Tobacco Use: No Hx Chewing Tobacco Use: No Hx Alcohol Use: No Hx Substance Use: No Hx Substance Use Treatment: No Hx Depression: No Hx Physical Abuse: No Hx Emotional Abuse: No Hx Suspected Abuse: No - Female History Patient : No Family Medical History - Family History Father Family History: Unknown Living Status: Hx Family Asthma: No Hx Family Congestive Heart Failure: Yes Hx Family Hypertension: Yes Hx Family Stroke: No Hx Cardiac Disease: Yes Hx Family Diabetes: No Hx Family Cancer: Yes - colon several family members Mother Family History: Unknown Living Status: Hx Family Asthma: Yes Hx Family Congestive Heart Failure: Yes Hx Family Hypertension: Yes Hx Family Stroke: No Hx Cardiac Disease: Yes - hx CABG Hx Family Diabetes: No Hx Family Cancer: No Hx Family;Other: emphysema Physical Exam - Physical Exam General Appearance: Alert Eyes, Ears, Nose, Throat Exam: PERRL/EOMI, normal ENT inspection, TMs normal, pharynx normal Neck: non-tender, full range of motion, supple Respiratory: chest non-tender, lungs clear, normal breath sounds Cardiovascular/Chest: normal peripheral pulses, regular rate, rhythm, no edema, no gallop Gastrointestinal/Abdominal: distended, other - ABD DISTENDED DIFFUSE LOWER QUADRANT TENDERNESS BOWEL SOUNDS PRESENT Progress - Progress Progress: 02/05/18 10:26 Laboratory Tests 02/05/18 02/05/18 08:18 08:18 WBC 4.6 L RBC 3.74 L Hgb 11.7 L Hct 33.6 L MCV 89.8 MCH 31.2 H MCHC 34.9 RDW 14.1 Plt Count 160 MPV 7.7 Absolute Neuts (auto) 1.70 L Absolute Lymphs (auto) 2.10 Absolute Monos (auto) 0.50 Absolute Eos (auto) 0.20 Absolute Basos (auto) 0.00 Neutrophils % 37.4 L Lymphocytes % 46.0 Monocytes % 10.4 H Eosinophils % 5.4 H Basophils % 0.8 Sodium 140 Potassium 3.6 Chloride 106 Carbon Dioxide 25 Anion Gap 12.6 BUN 24 H Creatinine 1.87 H BUN/Creatinine Ratio 12.8 Random Glucose 127 H Serum Osmolality 285.0 Calcium 9.2 Total Bilirubin 1.8 H AST 32 ALT 16 Alkaline Phosphatase 59 Serum Total Protein 7.8 Albumin 4.2 Globulin 3.6 H Albumin/Globulin Ratio 1.2 02/05/18 10:29 PT LAB REVIEWED AND DISCUSSED WITH PATIENT ABOUT THE FINDINGS SHE TAKES MORPHINE FOR CHRONIC NEUROPATHIC PAIN SHE THEREFORE WILL NOT NEED ANY MORE PAIN MEDS I WILL TREAT HER FOR DIVERTICULTIS WITH ORAL CIPRO AND FLAGYL SHE IS UNABLE TO GIVE STOOL SAMPLE AT THIS TIME SHE WAS ADVISED TO FOLLOW WITH DR GATO MATHUR IF SYMPTOMS DO NOT GET BETTER Departure - Departure Clinical Impression: Abdominal pain, Diverticulitis Time of Disposition: 10:26 Disposition: Discharge to Home or Self Care Condition: Good Departure Forms: ED Discharge - Pt. Copy, Patient Portal Self Enrollment Instructions: DI for Abdominal Pain-Adult Referrals: Yahir Thompson III, MD [Primary Care Provider] - 1-2 Weeks Prescriptions: Ciprofloxacin-Ciprofloxacin Hc [Ciprofloxacin ER 500 mg] 1 tab PO Q12HR #20 tab metroNIDAZOLE [Flagyl] 500 mg PO Q8H #30 tab Home Medications: Ambulatory Orders Diazepam [Valium] 10 mg PO BID 07/06/14 Furosemide [Lasix] 80 mg PO DAILY 07/06/14 Levothyroxine Sodium [Synthroid] 200 mcg PO DAILY 07/06/14 Potassium Chloride [Micro-K] 80 meq PO DAILY 07/06/14 Atenolol [Tenormin] 100 mg PO DAILY 08/04/14 Linagliptin [Tradjenta] 5 mg PO DAILY 02/23/16 Uloric 80 mg PO DAILY 02/23/16 Hydroxyzine HCl 25 mg PO TID PRN 09/07/16 Levetiracetam 1,000 mg PO BID 09/07/16 Ciprofloxacin-Ciprofloxacin Hc [Ciprofloxacin ER 500 mg] 1 tab PO Q12HR #20 tab 02/05/18 Morphine Sulfate Beads [Morphine Sulfate ER] 30 mg PO DAILY 02/05/18 Morphine Sulfate [Morphine Sulfate ER] 90 mg PO BEDTIME 02/05/18 Prednisone 10 mg PO DAILY 02/05/18 Promethazine Tab [Phenergan Tablet] 25 mg PO Q4HR PRN 02/05/18 metroNIDAZOLE [Flagyl] 500 mg PO Q8H #30 tab 02/05/18
[2018-02-05] MEDS: MORPHINE SULFATE INJ 10 MG/ML VIAL IM ONE (08:24)
[2018-02-05] MEDS: ONDANSETRON INJ 4 MG/2 ML VIAL IV ONE (08:25)
[2018-02-05 08:42] VITALS: O2SAT 97
--- NOTE | 2018-02-05 08:48 | RAD ---
EXAM DESCRIPTION: Abdomen Flat Upright CLINICAL HISTORY: 67 years Female, abdominal discomfort COMPARISON: CT abdomen pelvis dated February 05, 2018. TECHNIQUE: 2 views of the abdomen was performed. FINDINGS: Multiple air distended bowel loops are identified with no evidence of bowel obstruction. Moderate amount of fecal material is identified. No abnormal calcifications are noted. Multiple surgical clips are noted scattered throughout the upper abdomen, likely from prior surgery. No air under the domes of diaphragm. The visualized portions of the lung ha appear grossly unremarkable. No acute consolidation or pleural effusion. IMPRESSION: 1. Nonobstructive bowel gas pattern. Electronically signed by: Destin Bean MD 02/05/2018 8:47 AM AGRICULTURIST
[2018-02-05] MEDS: HYOSCYAMINE SULFATE 0.5 MG/ML VIAL IV ONE (10:17)
[2018-02-05 10:51] VITALS: BP 108/74
== END 2018-02-05 10:53 | disposition home or self-care (01) ==
LOC: ER 07:01
DX: K57.32 Diverticulitis of large intestine without perforation or abscess without bleeding (principal); E11.40 Type 2 diabetes mellitus with diabetic neuropathy, unspecified; I12.9 Hypertensive chronic kidney disease with stage 1 through stage 4 chronic kidney disease, or unspecified chronic kidney disease; E11.22 Type 2 diabetes mellitus with diabetic chronic kidney disease; N18.2 Chronic kidney disease, stage 2 (mild); K21.9 Gastro-esophageal reflux disease without esophagitis; E07.9 Disorder of thyroid, unspecified; Z85.038 Personal history of other malignant neoplasm of large intestine; Z86.718 Personal history of other venous thrombosis and embolism; Z90.49 Acquired absence of other specified parts of digestive tract
CPT/HCPCS: 74019; 80053; 85025; J2270; J2405

== ENCOUNTER → 2018-02-11 | Outpatient (CLI) | payer MEDICARE, OTHER | LOC: NC 12:54 | PROVIDERS: ATTEND Family Medicine | DX: N18.9 Chronic kidney disease, unspecified (principal); E11.22 Type 2 diabetes mellitus with diabetic chronic kidney disease; I12.9 Hypertensive chronic kidney disease with stage 1 through stage 4 chronic kidney disease, or unspecified chronic kidney disease ==

== ENCOUNTER → 2018-02-13 | Outpatient (CLI) | payer MEDICARE, OTHER | LOC: LAB.O 10:53 | PROVIDERS: ATTEND Family Medicine | DX: K90.0 Celiac disease (principal); D50.8 Other iron deficiency anemias ==

== ENCOUNTER 2018-02-21 16:01 | Emergency (ER) | payer MEDICARE, OTHER ==
[2018-02-21 16:27] VITALS: TEMP 98.3
--- NOTE | 2018-02-21 18:25 | CT ---
PROCEDURE: CT Head Without Intravenous Contrast CT Cervical Spine Without Intravenous Contrast CLINICAL INDICATION: The patient is 67 years old and is Female; fall TECHNIQUE: Axial computed tomography images of the head/brain and cervical spine without intravenous contrast. Sagittal and coronal reformatted images were created and reviewed. This CT exam was performed using one or more of the following dose reduction techniques: automated exposure control, adjustment of the mA and/or kV according to patient size, and/or use of iterative reconstruction technique. COMPARISON: None. FINDINGS: BRAIN: Mild cerebral atrophy. No hemorrhage. No significant white matter disease. VENTRICLES: Normal. No ventriculomegaly. SKULL: No acute fracture. SINUSES: Unremarkable as visualized. No acute sinusitis. MASTOID AIR CELLS: Unremarkable as visualized. No mastoid effusion. VERTEBRAE: Normal. No acute fracture. Normal alignment. DISCS/SPINAL CANAL/NEURAL FORAMINA: Spine degenerative changes with disc height loss and osteophyte formation, more pronounced at C6/7 where there is moderate disc height loss with mild posterior disc bulging causing mild central canal and neuroforaminal narrowing. Multilevel facet arthropathy also noted. SOFT TISSUES: Normal. VASCULATURE: Vascular calcifications. IMPRESSION: No acute intracranial findings. No acute spine abnormality. No fracture subluxation. Mild spine degenerative changes. Electronically signed by: Rafael Malin MD 02/21/2018 6:23 PM GROUTER HELPER
--- NOTE | 2018-02-21 18:34 | ED.PDOC ---
History of Present Illness - General Chief Complaint: Upper Extremity Injury Stated Complaint: R shoulder , L thumb discomfort, Neck discomfort Time Seen by Provider: 02/21/18 16:33 Source: patient Exam Limitations: no limitations - History of Present Illness Initial Comments: Leah Mcclellan 67 y/o female with history of TIA and SZ disorder brought by to ER after she passed out then slipped on the floor falling on her right side in their living room.She stated had multiple episodes of falling in the past due to her TIA,SZ and neuropathy . heard her crying and called up her sisters w/c lived in the neighborhood helped her get up to get up .Stated could not remember if she passed out or how long he was on the floor.Patient stated didnt want to go to er but told him to get checked.Had dull ache back of her head,neck.shoulders /arm right;left elbow and thumb,hip and both thighs.Denies dysarthria,blurry vision,nausea/vomiting,chest pains,sob.On arrival at ER was talking able to relate incident and all her pain symptomsHad recent EEG done with his neurologist and stated they might chnge her medications. Occurred: just prior to arrival Pain - Upper Extremity: moderate: Shoulder, left, Upper arm, left, Elbow, right, Hand, right Method of Injury: fell, other - see hpi Improving Factors: rest Worsening Factors: movement Associated Symptoms: pain Allergies/Adverse Reactions: Allergies Acetaminophen [From Percocet] Allergy (Intermediate, Verified 01/19/17 15:17) Shortness of Breath CI Pigment Blue 63 [From Cymbalta] Allergy (Intermediate, Verified 01/19/17 15:17) Shortness of Breath Codeine Allergy (Intermediate, Verified 01/19/17 15:17) Hives Duloxetine [From Cymbalta] Allergy (Intermediate, Verified 01/19/17 15:17) Shortness of Breath Meperidine [From Demerol HCl] Allergy (Intermediate, Verified 01/19/17 15:17) Shortness of Breath Oxycodone [From Percocet] Allergy (Intermediate, Verified 01/19/17 15:17) Shortness of Breath Citalopram [From Celexa] Allergy (Verified 01/19/17 15:17) Other Hydrocodone Allergy (Verified 11/10/17 15:17) Other Causes shortness of breath Pregabalin [From Lyrica] Adverse Reaction (Verified 01/19/17 15:17) Other "Caused kidney failure" Home Medications: Ambulatory Orders Diazepam [Valium] 10 mg PO BID 07/06/14 Furosemide [Lasix] 80 mg PO DAILY 07/06/14 Levothyroxine Sodium [Synthroid] 200 mcg PO DAILY 07/06/14 Potassium Chloride [Micro-K] 80 meq PO DAILY 07/06/14 Atenolol [Tenormin] 100 mg PO DAILY 08/04/14 Linagliptin [Tradjenta] 5 mg PO DAILY 02/23/16 Uloric 80 mg PO DAILY 02/23/16 Hydroxyzine HCl 25 mg PO TID PRN 09/07/16 Levetiracetam 1,000 mg PO BID 09/07/16 Ciprofloxacin-Ciprofloxacin Hc [Ciprofloxacin ER 500 mg] 1 tab PO Q12HR #20 tab 02/05/18 Morphine Sulfate Beads [Morphine Sulfate ER] 30 mg PO DAILY 02/05/18 Morphine Sulfate [Morphine Sulfate ER] 90 mg PO BEDTIME 02/05/18 Prednisone 10 mg PO DAILY 02/05/18 Promethazine Tab [Phenergan Tablet] 25 mg PO Q4HR PRN 02/05/18 metroNIDAZOLE [Flagyl] 500 mg PO Q8H #30 tab 02/05/18 Review of Systems - Review of Systems Musculoskeletal: States: see HPI Neurological: States: see HPI All other Systems: Reviewed and Negative, No Change from Baseline Past Medical History (General) - Patient Medical History Hx Seizures: Yes Hx Stroke: Yes Hx Dementia: No Hx Asthma: No Hx of COPD: No Hx Cardiac Disorders: Yes - Hx blood clots Hx Congestive Heart Failure: No Hx Pacemaker: No Hx Hypertension: Yes Hx Thyroid Disease: Yes Hx Diabetes: Yes Hx Gastroesophageal Reflux: Yes Hx Renal Disease: Yes - Stage 2 kidney failure, per pt Hx Cancer: Yes - colon x 2 Hx of HIV: No Hx Hepatitis C: No Hx MRSA: Yes MRSA Source:: Wound Surgical History: appendectomy, cholecystectomy, colectomy, other - Vaccination History Hx Tetanus, Diphtheria Vaccination: Yes Hx Influenza Vaccination: Yes Hx Pneumococcal Vaccination: Yes - Social History Hx Tobacco Use: No Hx Chewing Tobacco Use: No Hx Alcohol Use: No Hx Substance Use: No Hx Substance Use Treatment: No Hx Depression: No Hx Physical Abuse: No Hx Emotional Abuse: No Hx Suspected Abuse: No - Female History Patient : No Family Medical History - Family History Father Family History: Unknown Living Status: Hx Family Asthma: No Hx Family Congestive Heart Failure: Yes Hx Family Hypertension: Yes Hx Family Stroke: No Hx Cardiac Disease: Yes Hx Family Diabetes: No Hx Family Cancer: Yes - colon several family members Mother Family History: Unknown Living Status: Hx Family Asthma: Yes Hx Family Congestive Heart Failure: Yes Hx Family Hypertension: Yes Hx Family Stroke: No Hx Cardiac Disease: Yes - hx CABG Hx Family Diabetes: No Hx Family Cancer: No Hx Family;Other: emphysema Physical Exam - Physical Exam General Appearance: Alert, Comfortable, No apparent distress, Other - speech fluent Eyes, Ears, Nose, Throat Exam: PERRL/EOMI, normal ENT inspection, TMs normal, pharynx normal Neck: supple, normal inspection, tender lateral Cardiovascular/Respiratory: regular rate, rhythm, no M/R/G, normal peripheral pulses, no JVD, normal breath sounds Abdominal Exam: non-tender, no organomegaly Back Exam: no CVA tenderness, no vertebral tenderness Shoulder Exam: normal inspection, bone tenderness - right, limited ROM - pain right, soft tissue tenderness - right Elbow/Forearm Exam: normal inspection, bone tenderness - right Wrist Exam: normal inspection, non-tender, no evidence of injury, normal ROM Hand Exam: bone tenderness - right thumb Neuro/Tendon: normal sensation, normal motor functions, normal tendon functions, responds to pain Mental Status: alert, oriented x 3 Skin Exam: normal color, warm/dry Progress - Progress Progress: 02/21/18 18:39 Vital Signs - 8 hr 02/21/18 02/21/18 16:19 17:17 Temperature 98.3 F Pulse Rate [ 96 H 83 Left Radial] Respiratory 18 18 Rate Blood Pressure 140/89 119/70 [Left Arm] O2 Sat by Pulse 95 94 L Oximetry - Results/Orders Results/Orders: Laboratory Results - last 24 hr 02/21/18 18:39 POC Glucose 153 H Discuss all x-ray result with patient no fracture reported - EKG/XRAY/CT XRAY: multiple x rays done where patient hurting did not show any acute fracture CT Ordered: Yes - head /c-spine -no acute abnormalities Departure - Departure Clinical Impression: Contusion, multiple sites, Pain of multiple sites Fall at home Qualifiers: Encounter type: initial encounter Qualified Code(s): W19.XXXA - Unspecified fall, initial encounter; Y92.009 - Unspecified place in unspecified non- institutional (private) residence as the place of occurrence of the external cause Syncope Qualifiers: Syncope type: unspecified Qualified Code(s): R55 - Syncope and collapse Time of Disposition: 19:09 Disposition: Discharge to Home or Self Care Condition: Fair Departure Forms: ED Discharge - Pt. Copy, Patient Portal Self Enrollment Instructions: DI for Arm Pain Referrals: Yahir Thompson III, MD [Primary Care Provider] - 1-2 Weeks Home Medications: Ambulatory Orders Diazepam [Valium] 10 mg PO BID 07/06/14 Furosemide [Lasix] 80 mg PO DAILY 07/06/14 Levothyroxine Sodium [Synthroid] 200 mcg PO DAILY 07/06/14 Potassium Chloride [Micro-K] 80 meq PO DAILY 07/06/14 Atenolol [Tenormin] 100 mg PO DAILY 08/04/14 Linagliptin [Tradjenta] 5 mg PO DAILY 02/23/16 Uloric 80 mg PO DAILY 02/23/16 Hydroxyzine HCl 25 mg PO TID PRN 09/07/16 Levetiracetam 1,000 mg PO BID 09/07/16 Ciprofloxacin-Ciprofloxacin Hc [Ciprofloxacin ER 500 mg] 1 tab PO Q12HR #20 tab 02/05/18 Morphine Sulfate Beads [Morphine Sulfate ER] 30 mg PO DAILY 02/05/18 Morphine Sulfate [Morphine Sulfate ER] 90 mg PO BEDTIME 02/05/18 Prednisone 10 mg PO DAILY 02/05/18 Promethazine Tab [Phenergan Tablet] 25 mg PO Q4HR PRN 02/05/18 metroNIDAZOLE [Flagyl] 500 mg PO Q8H #30 tab 02/05/18 Additional Instructions: continue with all home medications;return to emergency room as needed as ne eded;Follow up with primary Md and neurologist ART;May take Tylenol 500 mg every 6 hours as needed for pain
--- NOTE | 2018-02-21 18:38 | RAD ---
EXAM DESCRIPTION: Humerus, right (accession [id number]), Shoulder, right 2 or More Views (accession [id number]) CLINICAL HISTORY: 67 years Female fall COMPARISON: None. TECHNIQUE: Two views of the right shoulder and two views of the right humerus. FINDINGS: No acute fractures or dislocations are identified. No osseous destructive lesions. Mild degenerative changes at the shoulder and elbow joint. IMPRESSION: No acute fracture is identified. Electronically signed by: Devin Santamaria MD 02/21/2018 6:36 PM [facility]
--- NOTE | 2018-02-21 18:38 | RAD ---
EXAM DESCRIPTION: Humerus, right (accession [id number]), Shoulder, right 2 or More Views (accession [id number]) CLINICAL HISTORY: 67 years Female fall COMPARISON: None. TECHNIQUE: Two views of the right shoulder and two views of the right humerus. FINDINGS: No acute fractures or dislocations are identified. No osseous destructive lesions. Mild degenerative changes at the shoulder and elbow joint. IMPRESSION: No acute fracture is identified. Electronically signed by: Devin Santamaria MD 02/21/2018 6:36 PM [facility]
--- NOTE | 2018-02-21 18:43 | RAD ---
EXAM DESCRIPTION: Elbow,Left 2 Views CLINICAL HISTORY: fall COMPARISON: None FINDINGS: 2 view(s) submitted. No fracture or dislocation is identified. Bone marrow attenuation is unremarkable. Nonspecific 8 mm density projects over the subcutaneous fat of the upper arm. This could be outside the patient. IMPRESSION: No acute fracture or dislocation. Electronically signed by: Landry Hickman 02/21/2018 6:41 PM MOP HANDLE ASSEMBLER
--- NOTE | 2018-02-21 18:44 | RAD ---
EXAM DESCRIPTION: Humerus,Left CLINICAL HISTORY: fall COMPARISON: None FINDINGS: 2 view(s) submitted. No fracture or dislocation is identified. Bone marrow attenuation is unremarkable. No radiopaque foreign body is identified. IMPRESSION: No acute fracture or dislocation. Electronically signed by: Landry Hickman 02/21/2018 6:42 PM [facility]
--- NOTE | 2018-02-21 18:44 | RAD ---
EXAM DESCRIPTION: Femur,Left CLINICAL HISTORY: 67 years Female fall COMPARISON: None. TECHNIQUE: Two views of the left femur. FINDINGS: No acute fractures or dislocations are identified. No osseous destructive lesions. Mild degenerative changes in the hip. Changes from total knee arthroplasty. Atherosclerotic calcifications. IMPRESSION: No acute fracture is identified. Electronically signed by: Devin Santamaria MD 02/21/2018 6:42 PM HEAV[employer] EQUIPMENT PLUMBING SUPERVISOR
--- NOTE | 2018-02-21 18:45 | RAD ---
EXAM DESCRIPTION: Femur,Right CLINICAL HISTORY: 67 years Female fall COMPARISON: None. TECHNIQUE: Two views of the right femur. FINDINGS: No acute fractures or dislocations are identified. No osseous destructive lesions. Mild degenerative changes in the right hip. Changes from total knee arthroplasty. Atherosclerotic calcifications. IMPRESSION: No acute fracture is identified. Electronically signed by: Devin Santamaria MD 02/21/2018 6:43 PM [employer] TRUCK DRIVER
--- NOTE | 2018-02-21 18:46 | RAD ---
EXAM DESCRIPTION: Chest,1 View CLINICAL HISTORY: fall COMPARISON: None. FINDINGS: An 8 millimeter nodule at the lateral left lung could reflect old granulomatous disease but is nonspecific. The lungs are otherwise clear. Cardiac silhouette is within normal limits. There is no focal parenchymal or pleural disease. Visualized osseous structures are within normal limits. IMPRESSION: Left lung nodule. No evidence of acute cardiopulmonary disease. Electronically signed by: Landry Hickman 02/21/2018 6:44 PM MEDICAID PLAN COMPLIANCE DIRECTOR
--- NOTE | 2018-02-21 18:46 | RAD ---
EXAM DESCRIPTION: Pelvis CLINICAL HISTORY: 67 years Female fall COMPARISON: None. TECHNIQUE: Single AP view of the pelvis. FINDINGS: No acute fractures or dislocations are identified. No osseous destructive lesions. Degenerative changes in the lower lumbar spine. Mild degenerative changes in the hips. Atherosclerotic calcifications. IMPRESSION: No acute fracture is identified. CT or MRI could be obtained to better evaluate the hips if there is continued clinical concern. Electronically signed by: Devin Santamaria MD 02/21/2018 6:44 PM MAXILLOFACIAL PROSTHETICS DENTIST
--- NOTE | 2018-02-21 18:48 | RAD ---
EXAM DESCRIPTION: Thumb, left CLINICAL HISTORY: 67 years Female fall COMPARISON: None. TECHNIQUE: Two views of the left thumb. FINDINGS: No acute fractures or dislocations are identified. No osseous destructive lesions. IMPRESSION: No acute fracture is identified. Electronically signed by: Devin Santamaria MD 02/21/2018 6:46 PM LAST INSERTER
[2018-02-21 19:39] VITALS: BP 128/73; O2SAT 93
== END 2018-02-21 19:35 | disposition home or self-care (01) ==
LOC: ER 16:01
DX: T14.8XXA Other injury of unspecified body region, initial encounter (principal); R55 Syncope and collapse; M79.641 Pain in right hand; R51 Headache; M25.511 Pain in right shoulder; M79.631 Pain in right forearm; M25.521 Pain in right elbow; M47.812 Spondylosis without myelopathy or radiculopathy, cervical region; K21.9 Gastro-esophageal reflux disease without esophagitis; E07.9 Disorder of thyroid, unspecified; N18.2 Chronic kidney disease, stage 2 (mild); E11.22 Type 2 diabetes mellitus with diabetic chronic kidney disease; I12.9 Hypertensive chronic kidney disease with stage 1 through stage 4 chronic kidney disease, or unspecified chronic kidney disease; Z86.73 Personal history of transient ischemic attack (TIA), and cerebral infarction without residual deficits; Z85.038 Personal history of other malignant neoplasm of large intestine; Z86.718 Personal history of other venous thrombosis and embolism; Z79.899 Other long term (current) drug therapy; Z88.5 Allergy status to narcotic agent; Z88.8 Allergy status to other drugs, medicaments and biological substances; Z88.6 Allergy status to analgesic agent; W01.0XXA Fall on same level from slipping, tripping and stumbling without subsequent striking against object, initial encounter; Y92.008 Other place in unspecified non-institutional (private) residence as the place of occurrence of the external cause

== ENCOUNTER → 2018-04-09 | Outpatient (CLI) | payer MEDICARE, OTHER | LOC: NC 11:54 | PROVIDERS: ATTEND Family Medicine | DX: R30.0 Dysuria (principal) ==

== ENCOUNTER 2018-05-15 14:32 | Emergency (ER) | payer MEDICARE, OTHER ==
[2018-05-15] MEDS ORDERED: SODIUM CHLORIDE 0.9% 1000ML 1,000 ML ONE (14:49)
[2018-05-15] MEDS ORDERED: SODIUM CHLORIDE 0.9% 1000ML 1,000 ML IVS ONE (14:53)
[2018-05-15 14:55] VITALS: TEMP 98.5
[2018-05-15] MEDS ORDERED: POTASSIUM CHLORIDE ELIXIR 20 MEQ/15 ML UD PO ONE (15:21)
--- NOTE | 2018-05-15 15:23 | RAD ---
EXAM DESCRIPTION: Chest,1 View CLINICAL HISTORY: 67 years Female, drowsy, slurred speech COMPARISON: None. TECHNIQUE: AP portable chest. FINDINGS: Heart size is prominent with normal pulmonary vascularity. Calcified nodule in the left lung base unchanged. No consolidating infiltrate. No pulmonary mass or worrisome nodule. No pneumothorax or pleural effusion. Bones are unremarkable. IMPRESSION: No acute process is identified in the chest. Electronically signed by: Niranjan Stone MD 05/15/2018 3:19 PM [facility]
--- NOTE | 2018-05-15 15:24 | CT ---
EXAM DESCRIPTION: Head CLINICAL HISTORY: slurred speech COMPARISON: February 21, 2018 TECHNIQUE: Noncontrast transaxial CT images of the head are obtained from base to vertex. This exam was performed according to our departmental dose-optimization program, which includes automated exposure control, adjustment of the mA and/or kV according to patient size and/or use of iterative reconstruction technique. FINDINGS: The midline structures are not displaced. Sulci are age-appropriate. There are areas of decreased attenuation in the periventricular white matter and the white matter of the centrum semiovale. There is no evidence of mass, mass-effect, hydrocephalus, or acute intracranial hemorrhage. No abnormal extra axial fluid collection is seen. Moderate calcifications of the intracranial carotid and vertebral arteries is seen. Bone windows show no evidence of depressed skull fracture. The visualized paranasal sinuses are unremarkable. IMPRESSION: 1. Age-appropriate atrophy with evidence of old small vessel ischemic type changes seen. CT is insensitive for acute intracranial ischemia. Consider further evaluation with MRI imaging if clinically indicated. 2. No acute abnormality is seen on noncontrast CT of the head. Electronically signed by: Narayan Cohen MD 05/15/2018 3:20 PM [facility]
[2018-05-15] MEDS ORDERED: LOPERAMIDE CAP 2 MG CAP PO ONE ×2 (17:30→17:35)
--- NOTE | 2018-05-15 18:34 | ED.PDOC ---
History of Present Illness - General Chief Complaint: Neuro Symptoms/Deficits Stated Complaint: Weakness, slurred speech Time Seen by Provider: 05/15/18 14:38 Source: patient, family Exam Limitations: no limitations - History of Present Illness Initial Comments: the patient is a 67-year-old female presenting to the emergency room secondary to some slurred speech along with a mild headache starting this morning when she woke up. The patient has had a history of over medication in the past. She recently had her carbamazepine dose increased. She takes multiple medications for chronic pain and seizures according to her. She recently had her medication doses increased with Dr. Kowalski. She has no focal neurological deficits. She is easily arousable to voice. Extraocular movements are intact. Gait is a little bit unsteady but she is very drowsy. Pupils are pinpoint. Timing/Duration: 4-6 hours Severity: moderate Improving Factors: nothing Worsening Factors: nothing Associated Symptoms: headaches, malaise Allergies/Adverse Reactions: Allergies Acetaminophen [From Percocet] Allergy (Intermediate, Verified 01/19/17 15:17) Shortness of Breath CI Pigment Blue 63 [From Cymbalta] Allergy (Intermediate, Verified 01/19/17 15:17) Shortness of Breath Codeine Allergy (Intermediate, Verified 01/19/17 15:17) Hives Duloxetine [From Cymbalta] Allergy (Intermediate, Verified 01/19/17 15:17) Shortness of Breath Meperidine [From Demerol HCl] Allergy (Intermediate, Verified 01/19/17 15:17) Shortness of Breath Oxycodone [From Percocet] Allergy (Intermediate, Verified 01/19/17 15:17) Shortness of Breath Citalopram [From Celexa] Allergy (Verified 01/19/17 15:17) Other Hydrocodone Allergy (Verified 01/19/17 15:17) Other Causes shortness of breath Pregabalin [From Lyrica] Adverse Reaction (Verified 01/19/17 15:17) Other "Caused kidney failure" Home Medications: Ambulatory Orders Diazepam [Valium] 10 mg PO BID PRN 07/06/14 Furosemide [Lasix] 80 mg PO DAILY 07/06/14 Levothyroxine Sodium [Synthroid] 200 mcg PO DAILY 07/06/14 Potassium Chloride [Micro-K] 80 meq PO DAILY 07/06/14 Atenolol [Tenormin] 100 mg PO BEDTIME 08/04/14 Febuxostat [Uloric] 80 mg PO BEDTIME 02/23/16 Linagliptin [Tradjenta] 5 mg PO DAILY 02/23/16 Levetiracetam 1,000 mg PO BID 09/07/16 Morphine Sulfate [Morphine Sulfate ER] 120 mg PO BEDTIME 02/05/18 Review of Systems - Review of Systems Constitutional: States: malaise EENTM: States: no symptoms reported Respiratory: States: no symptoms reported Cardiology: States: no symptoms reported Gastrointestinal/Abdominal: States: diarrhea - chronic for the last 10 years since a cholecystectomy Genitourinary: States: no symptoms reported Musculoskeletal: States: no symptoms reported Skin: States: no symptoms reported Neurological: States: see HPI All other Systems: No Change from Baseline Past Medical History (General) - Patient Medical History Hx Seizures: Yes Hx Stroke: Yes Hx Dementia: No Hx Asthma: No Hx of COPD: No Hx Cardiac Disorders: Yes - Hx blood clots Hx Congestive Heart Failure: No Hx Pacemaker: No Hx Hypertension: Yes Hx Thyroid Disease: Yes Hx Diabetes: Yes Hx Gastroesophageal Reflux: Yes Hx Renal Disease: Yes - Stage 2 kidney failure, per pt Hx Cancer: Yes - colon x 2 Hx of HIV: No Hx Hepatitis C: No Hx MRSA: Yes MRSA Source:: Wound - Vaccination History Hx Tetanus, Diphtheria Vaccination: Yes Hx Influenza Vaccination: Yes Hx Pneumococcal Vaccination: Yes - Social History Hx Tobacco Use: No Hx Chewing Tobacco Use: No Hx Alcohol Use: No Hx Substance Use: No Hx Substance Use Treatment: No Hx Depression: No Hx Physical Abuse: No Hx Emotional Abuse: No Hx Suspected Abuse: No - Female History Patient : No Family Medical History - Family History Father Family History: Unknown Living Status: Hx Family Asthma: No Hx Family Congestive Heart Failure: Yes Hx Family Hypertension: Yes Hx Family Stroke: No Hx Cardiac Disease: Yes Hx Family Diabetes: No Hx Family Cancer: Yes - colon several family members Mother Family History: Unknown Living Status: Hx Family Asthma: Yes Hx Family Congestive Heart Failure: Yes Hx Family Hypertension: Yes Hx Family Stroke: No Hx Cardiac Disease: Yes - hx CABG Hx Family Diabetes: No Hx Family Cancer: No Hx Family;Other: emphysema Physical Exam - Physical Exam General Appearance: Comfortable, No apparent distress, Lethargic - rousable to voice Eye Exam: bilateral normal - pupils are 2 mm laterally. Extraocular movements are intact Ears, Nose, Throat: hearing grossly normal, normal ENT inspection, normal pharynx Neck: full range of motion, supple, normal inspection Respiratory: lungs clear, normal breath sounds, no respiratory distress, no accessory muscle use Cardiovascular/Chest: normal peripheral pulses, regular rate, rhythm, no edema Peripheral Pulses: radial,right: 2+, radial,left: 2+, dorsalis pedis,right: 2+, dorsalis pedis,left: 2+ Gastrointestinal/Abdominal: non tender, soft Rectal Exam: deferred Back Exam: no CVA tenderness, no vertebral tenderness Extremity: normal range of motion, non-tender, normal inspection, no pedal edema, normal capillary refill 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 nml as tested, oriented x 3 Skin Exam: normal color Comments: Vital Signs (72 hours) 05/15/18 05/15/18 05/15/18 14:45 15:30 16:30 Temperature 98.5 F Pulse Rate [ 76 70 78 Left Radial] Respiratory 18 20 20 Rate Blood Pressure 147/77 115/66 119/81 [Right Arm] O2 Sat by Pulse 98 99 98 Oximetry 05/15/18 17:30 Temperature Pulse Rate [ 68 Left Radial] Respiratory 20 Rate Blood Pressure 121/69 [Right Arm] O2 Sat by Pulse 98 Oximetry Progress - Progress Progress: 05/15/18 18:35 the patient is a 67-year-old female presenting to the emergency room secondary to what appears to be oversedation from increased doses of prescription medications. I would encourage her to go back down to her previous carbamazepine dose and give her primary care doctor call tomorrow. The patient has received a liter of IV fluids and a dose of potassium for mild hypokalemia. She is mentating better at this point. ER warnings were given for any significant worsening. Follow up with primary care doctor and neurology. Laboratory work and radiology failed to show any other acute pathology. - Results/Orders Results/Orders: Laboratory Tests 05/15/18 05/15/18 05/15/18 14:45 14:45 14:45 WBC 6.0 RBC 4.06 L Hgb 12.6 Hct 36.2 MCV 89.3 MCH 31.0 MCHC 34.7 RDW 13.5 Plt Count 162 MPV 8.1 Absolute Neuts (auto) 2.40 Absolute Lymphs (auto) 2.80 Absolute Monos (auto) 0.50 Absolute Eos (auto) 0.30 Absolute Basos (auto) 0.10 Neutrophils % 40.4 L Lymphocytes % 46.0 Monocytes % 8.5 Eosinophils % 4.2 Basophils % 0.9 PT 10.9 INR 1.09 PTT (SP) 22.8 Sodium 137 Potassium 3.5 L Chloride 101 Carbon Dioxide 24 Anion Gap 15.5 BUN 22 H Creatinine 1.65 H BUN/Creatinine Ratio 13.3 Random Glucose 227 H Serum Osmolality 284.3 Calcium 9.7 Magnesium 1.8 Total Bilirubin 1.1 H AST 31 ALT 24 Alkaline Phosphatase 108 Creatine Kinase 30 CK-MB (CK-2) 1.2 CK-MB (CK-2) % Not Reportable Troponin I < 0.02 B-Natriuretic Peptide 81.2 Serum Total Protein 7.9 Albumin 4.4 Globulin 3.5 Albumin/Globulin Ratio 1.3 CT scan of the head shows no acute pathology. Chest x-ray shows no acute pathology. EKG showed normal sinus rhythm at 72 bpm. Normal QT interval. Poor R-wave prog ression which is chronic. No ST segment or T-wave changes definitive for ischemia in comparison to previous EKGs Departure - Departure Clinical Impression: Hypokalemia Adverse reaction of antiepileptic Qualifiers: Encounter type: initial encounter Qualified Code(s): T42.75XA - Adverse effect of unspecified antiepileptic and sedative-hypnotic drugs, initial encounter Disposition: Discharge to Home or Self Care Condition: Fair Departure Forms: ED Discharge - Pt. Copy, Patient Portal Self Enrollment Instructions: DI for Altered Mental Status Diet: regular diet Activity: increase activity as tolerated Referrals: Yahir Thompson III, MD [Primary Care Provider] - 1-2 Weeks Home Medications: Ambulatory Orders Diazepam [Valium] 10 mg PO BID PRN 07/06/14 Furosemide [Lasix] 80 mg PO DAILY 07/06/14 Levothyroxine Sodium [Synthroid] 200 mcg PO DAILY 07/06/14 Potassium Chloride [Micro-K] 80 meq PO DAILY 07/06/14 Atenolol [Tenormin] 100 mg PO BEDTIME 08/04/14 Febuxostat [Uloric] 80 mg PO BEDTIME 02/23/16 Linagliptin [Tradjenta] 5 mg PO DAILY 02/23/16 Levetiracetam 1,000 mg PO BID 09/07/16 Morphine Sulfate [Morphine Sulfate ER] 120 mg PO BEDTIME 02/05/18 Additional Instructions: the patient is a 67-year-old female presenting to the emergency room secondary to what appears to be oversedation from increased doses of prescription medications. I would encourage her to go back down to her previous carbamazepine dose and give her primary care doctor call tomorrow. The patient has received a liter of IV fluids and a dose of potassium for mild hypokalemia. She is mentating better at this point. ER warnings were given for any significant worsening. Follow up with primary care doctor and neurology. Laboratory work and radiology failed to show any other acute pathology.
[2018-05-15 19:20] VITALS: BP 111/66; O2SAT 99
== END 2018-05-15 19:20 | disposition home or self-care (01) ==
LOC: ER 14:32
DX: E87.6 Hypokalemia (principal); R47.81 Slurred speech; G44.40 Drug-induced headache, not elsewhere classified, not intractable; T42.1X5A Adverse effect of iminostilbenes, initial encounter; G89.29 Other chronic pain; R56.9 Unspecified convulsions; I51.9 Heart disease, unspecified; N18.2 Chronic kidney disease, stage 2 (mild); I12.9 Hypertensive chronic kidney disease with stage 1 through stage 4 chronic kidney disease, or unspecified chronic kidney disease; E11.22 Type 2 diabetes mellitus with diabetic chronic kidney disease; E07.9 Disorder of thyroid, unspecified; K21.9 Gastro-esophageal reflux disease without esophagitis; Z86.73 Personal history of transient ischemic attack (TIA), and cerebral infarction without residual deficits; Z85.038 Personal history of other malignant neoplasm of large intestine; Z79.899 Other long term (current) drug therapy; Z86.718 Personal history of other venous thrombosis and embolism; Z88.8 Allergy status to other drugs, medicaments and biological substances; Z88.6 Allergy status to analgesic agent
CPT/HCPCS: 70450; 71045; 80053; 82550; 82553; 83735; 83880; 84484; 85025; 85610; 85730; 93005; J7030

== ENCOUNTER 2018-05-17 10:30 | Emergency (ER) | payer MEDICARE, OTHER ==
[2018-05-17] MEDS ORDERED: ONDANSETRON INJ 4 MG/2 ML VIAL IV ONE (10:58)
[2018-05-17] MEDS ORDERED: SODIUM CHLORIDE 0.9% 1000ML 1,000 ML IVS ONE ×2 (10:58→12:41)
[2018-05-17 11:08] VITALS: TEMP 97.7
--- NOTE | 2018-05-17 11:12 | ED.PDOC ---
History of Present Illness - General Chief Complaint: GI Problem Stated Complaint: 1 week of nausea and diarrhea Time Seen by Provider: 05/17/18 10:57 Information Source: patient Exam Limitations: no limitations - History of Present Illness Initial Comments: patient comes in with 1 week history of nausea, emesis, and diarrhea. Patient states she was seen by neurology on Sunday and he doubled her seizure medication (she does not know the name of medication). On Sunday she started with the stomach issues. She states the emesis stopped yesterday but the nausea persists and the diarrhea is non stop. She has had more than 5 bowel movements this morning. She feels week and her abdomen is diffusely sore. She has a history of diarrhea since she had colon cancer with one recurrence. She has had several abdominal surgeries including, colon resections x 2, hyst, aroldo, and appendectomy. She has no sick family members and no questionable po intake. She has no recent travel or camping. She has no cough, congestion, fever, or chills. She does have CRF, DM II, and diabetic neuropathy as well. Abdominal Pain Onset Location: generalized abdomen Pain Radiation: no radiation Quality: cramping, dull Timing/Duration: 1 week Improving Factors: nothing Worsening Factors: eating Associated Symptoms: diarrhea, nausea/vomiting Review of Systems - Review of Systems Constitutional: States: weakness. Denies: chills, fever EENTM: States: no symptoms reported. Denies: eye pain, ear discharge, throat p ain Respiratory: States: no symptoms reported. Denies: cough, short of breath, wheezing Cardiology: States: no symptoms reported. Denies: chest pain Gastrointestinal/Abdominal: States: see HPI, abdominal pain, diarrhea, nausea, vomiting Genitourinary: States: no symptoms reported Musculoskeletal: States: no symptoms reported Skin: States: no symptoms reported Neurological: States: no symptoms reported Past Medical History (General) - Patient Medical History Hx Seizures: Yes Hx Stroke: Yes Hx Dementia: No Hx Asthma: No Hx of COPD: No Hx Cardiac Disorders: Yes - Hx blood clots Hx Congestive Heart Failure: No Hx Pacemaker: No Hx Hypertension: Yes Hx Thyroid Disease: Yes Hx Diabetes: Yes Hx Gastroesophageal Reflux: Yes Hx Renal Disease: Yes - Stage 2 kidney failure, per pt Hx Cancer: Yes - colon x 2 Hx of HIV: No Hx Hepatitis C: No Hx MRSA: Yes MRSA Source:: Wound - Vaccination History Hx Tetanus, Diphtheria Vaccination: Yes Hx Influenza Vaccination: Yes Hx Pneumococcal Vaccination: Yes - Social History Hx Tobacco Use: No Hx Chewing Tobacco Use: No Hx Alcohol Use: No Hx Substance Use: No Hx Substance Use Treatment: No Hx Depression: No Hx Physical Abuse: No Hx Emotional Abuse: No Hx Suspected Abuse: No - Female History Patient : No Family Medical History - Family History Father Family History: Unknown Living Status: Hx Family Asthma: No Hx Family Congestive Heart Failure: Yes Hx Family Hypertension: Yes Hx Family Stroke: No Hx Cardiac Disease: Yes Hx Family Diabetes: No Hx Family Cancer: Yes - colon several family members Mother Family History: Unknown Living Status: Hx Family Asthma: Yes Hx Family Congestive Heart Failure: Yes Hx Family Hypertension: Yes Hx Family Stroke: No Hx Cardiac Disease: Yes - hx CABG Hx Family Diabetes: No Hx Family Cancer: No Hx Family;Other: emphysema Physical Exam - Physical Exam General Appearance: Alert, No apparent distress, Ill Appearing Eyes, Ears, Nose, Throat Exam: PERRL/EOMI, normal ENT inspection, TMs normal, pharynx normal Neck: non-tender, full range of motion, supple, normal inspection Respiratory: chest non-tender, lungs clear, normal breath sounds, no respiratory distress Cardiovascular/Chest: normal peripheral pulses, regular rate, rhythm, no edema, no gallop, no murmur Peripheral Pulses: No deficit Gastrointestinal/Abdominal: normal bowel sounds, non tender, soft, no organomegaly, no pulsatile mass Neurologic: alert, oriented x 3 Progress - Progress Progress: 05/17/18 14:06 patient is feeling better after 2 L of fluid. Explained I am concerned that recent increase in her medication by not be tolerated by her stomach. She will hold the Tegretol for today and go back to the lower dose until she can speak to neurology and her stomach is better. Slow return to normal diet. - Results/Orders Results/Orders: 05/17/18 14:05 Sodium Chloride 0.9% 1000ML [Ns 1000 ml] 1,000 ml IVS .QD Laboratory Results WBC 5.2 K/mm3 (4.8-10.8) 05/17/18 11:21 RBC 3.90 M/mm3 (4.20-5.40) L 05/17/18 11:21 Hgb 12.1 gm/dL (12.0-16.0) 05/17/18 11:21 Hct 34.8 % (36.0-47.0) L 05/17/18 11:21 MCV 89.1 fl (81.0-99.0) 05/17/18 11:21 MCH 30.9 pg (27.0-31.0) 05/17/18 11:21 MCHC 34.7 g/dL (33.0-37.0) 05/17/18 11:21 RDW 13.1 % (11.5-14.5) 05/17/18 11:21 Plt Count 157 K/mm3 (130-400) 05/17/18 11:21 MPV 7.8 fl (7.40-10.4) 05/17/18 11:21 Absolute Neuts (auto) 2.60 K/uL (1.8-6.8) 05/17/18 11:21 Absolute Lymphs (auto) 2.00 K/uL (1.0-3.4) 05/17/18 11:21 Absolute Monos (auto) 0.40 K/uL (0.2-0.8) 05/17/18 11:21 Absolute Eos (auto) 0.20 K/uL (0.0-0.4) 05/17/18 11:21 Absolute Basos (auto) 0.00 K/uL (0.0-0.1) 05/17/18 11:21 Neutrophils % 50.4 % (42.0-78.0) 05/17/18 11:21 Lymphocytes % 37.8 % (20.0-50.0) 05/17/18 11:21 Monocytes % 7.4 % (2.0-9.0) 05/17/18 11:21 Eosinophils % 3.6 % (1.0-5.0) 05/17/18 11:21 Basophils % 0.8 % (0.0-2.0) 05/17/18 11:21 Sodium 138 mmol/L (135-145) 05/17/18 11:21 Potassium 4.0 mmol/L (3.6-5.0) 05/17/18 11:21 Chloride 105 mmol/L (101-111) 05/17/18 11:21 Carbon Dioxide 23 mmol/L (21-31) 05/17/18 11:21 Anion Gap 14.0 (12-18) 05/17/18 11:21 BUN 21 mg/dL (7-18) H 05/17/18 11:21 Creatinine 1.77 mg/dL (0.6-1.3) H 05/17/18 11:21 BUN/Creatinine Ratio 11.9 (10-20) 05/17/18 11:21 Random Glucose 175 mg/dL (70-105) H 05/17/18 11:21 Serum Osmolality 282.9 mOsm/L (275-295) 05/17/18 11:21 Calcium 9.4 mg/dL (8.4-10.2) 05/17/18 11:21 Magnesium 1.7 mg/dL (1.8-2.5) L 05/17/18 11:21 Total Bilirubin 0.8 mg/dL (0.2-1.0) 05/17/18 11:21 AST 26 IU/L (10-42) 05/17/18 11:21 ALT 20 IU/L (10-60) 05/17/18 11:21 Alkaline Phosphatase 111 IU/L (42-121) 05/17/18 11:21 Serum Total Protein 7.7 gm/dL (6.4-8.2) 05/17/18 11:21 Albumin 4.3 g/dl (3.2-5.5) 05/17/18 11:21 Globulin 3.4 gm/dL (2.3-3.5) 05/17/18 11:21 Albumin/Globulin Ratio 1.3 (1.1-1.9) 05/17/18 11:21 Departure - Departure Clinical Impression: Diarrhea Qualifiers: Diarrhea type: unspecified type Qualified Code(s): R19.7 - Diarrhea, unspecified Disposition: Discharge to Home or Self Care Condition: Fair Departure Forms: ED Discharge - Pt. Copy, Patient Portal Self Enrollment Referrals: Yahir Thompson III, MD [Primary Care Provider] - 1-2 Weeks Home Medications: Ambulatory Orders Diazepam [Valium] 10 mg PO BID PRN 07/06/14 Furosemide [Lasix] 80 mg PO DAILY 07/06/14 Levothyroxine Sodium [Synthroid] 200 mcg PO DAILY 07/06/14 Potassium Chloride [Micro-K] 80 meq PO DAILY 07/06/14 Atenolol [Tenormin] 100 mg PO BEDTIME 08/04/14 Febuxostat [Uloric] 80 mg PO BEDTIME 02/23/16 Linagliptin [Tradjenta] 5 mg PO DAILY 02/23/16 Levetiracetam 1,000 mg PO BID 09/07/16 Morphine Sulfate [Morphine Sulfate ER] 120 mg PO BEDTIME 02/05/18 Cyanocobalamin Inj [Vitamin B-12 Inj] 1,000 mcg IM MONTHLY 05/17/18 Escitalopram [Lexapro] 10 mg PO DAILY 05/17/18 Oxcarbazepine 450 mg PO BID 05/17/18 Additional Instructions: hold the Tegretol for today and go back to the lower dose until she can speak to neurology and her stomach is better. Slow return to normal diet. Follow up with PCP on Sunday
--- NOTE | 2018-05-17 12:06 | RAD ---
EXAM DESCRIPTION: Abdomen Flat Upright CLINICAL HISTORY: 67 years Female, pain COMPARISON: Radiographs of the abdomen dated 02/05/2018. TECHNIQUE: 1 view of the abdomen was performed. FINDINGS: Postsurgical changes are again identified. Few prominent bowel loops are identified suggesting a nonspecific bowel gas pattern. No evidence of bowel obstruction. IMPRESSION: Few prominent bowel loops are identified suggesting a nonspecific bowel gas pattern. No evidence of bowel obstruction. Electronically signed by: Susana Boone MD 05/17/2018 12:[address] [facility]
[2018-05-17] MEDS ORDERED: DIPHENOXYLATE HCL/ATROPINE 2.5 MG TAB PO ONE (12:41)
[2018-05-17] MEDS ORDERED: LIDOCAINE HCL 2% (MOUTH-THROAT) 15 ML UD ONE (13:48)
[2018-05-17] MEDS ORDERED: ALUM & MAG HYDROX-SIMETHICONE 30 ML UD ONE (13:48)
[2018-05-17] MEDS ORDERED: ALUM & MAG HYDROX-SIMETHICONE 30 ML, LIDOCAINE VISCOUS 2% 15 ML PO ONE ×2 (13:48)
[2018-05-17] MEDS ORDERED: SODIUM CHLORIDE 0.9% 1000ML 1,000 ML IVS PRN (14:05)
[2018-05-17 14:56] VITALS: BP 123/64; O2SAT 100
== END 2018-05-17 14:30 | disposition home or self-care (01) ==
LOC: ER 10:30
DX: R19.7 Diarrhea, unspecified (principal); R11.2 Nausea with vomiting, unspecified; R56.9 Unspecified convulsions; N18.2 Chronic kidney disease, stage 2 (mild); E11.22 Type 2 diabetes mellitus with diabetic chronic kidney disease; E11.40 Type 2 diabetes mellitus with diabetic neuropathy, unspecified; I12.9 Hypertensive chronic kidney disease with stage 1 through stage 4 chronic kidney disease, or unspecified chronic kidney disease; E07.9 Disorder of thyroid, unspecified; K21.9 Gastro-esophageal reflux disease without esophagitis; Z79.899 Other long term (current) drug therapy; Z85.038 Personal history of other malignant neoplasm of large intestine; Z98.890 Other specified postprocedural states; Z86.73 Personal history of transient ischemic attack (TIA), and cerebral infarction without residual deficits
CPT/HCPCS: 36415; 74019; 80053; 83735; 85025; J2405; J7030

== ENCOUNTER → 2018-05-30 | Outpatient (CLI) | payer MEDICARE, OTHER | LOC: NC 16:14 | PROVIDERS: ATTEND Family Medicine | DX: G40.909 Epilepsy, unspecified, not intractable, without status epilepticus (principal) ==

== ENCOUNTER 2018-07-24 20:37 | Emergency (ER) | payer MEDICARE, OTHER ==
--- NOTE | 2018-07-24 21:47 | RAD ---
EXAM: XR Left Elbow, 2 Views CLINICAL HISTORY: The patient is 67 years old and is Female; fall with pain TECHNIQUE: Frontal and lateral views of the left elbow. COMPARISON: No relevant prior studies available. FINDINGS: BONES/JOINTS: Unremarkable. No acute fracture. No dislocation. SOFT TISSUES: Unremarkable. IMPRESSION: Normal left elbow radiographs. Electronically signed by: Mattie Ortiz MD 07/24/2018 9:44 PM CDT
--- NOTE | 2018-07-24 21:47 | RAD ---
EXAM: XR Left Clavicle Complete, 2 or More Views CLINICAL HISTORY: The patient is 67 years old and is Female; fall with pain TECHNIQUE: Frontal and lordotic views of the left clavicle. COMPARISON: No relevant prior studies available. FINDINGS: BONES/JOINTS: Degenerative change of the left acromioclavicular joint is noted. No acute fracture. No dislocation. SOFT TISSUES: Unremarkable. IMPRESSION: No acute findings. Electronically signed by: Mattie Ortiz MD 07/24/2018 9:45 PM CDT
--- NOTE | 2018-07-24 21:48 | RAD ---
EXAM: XR Pelvis, 1 or 2 Views CLINICAL HISTORY: The patient is 67 years old and is Female; fall with pain TECHNIQUE: Frontal view of the pelvis. COMPARISON: Pelvic radiograph February 21, 2018. FINDINGS: BONES/JOINTS: The SI joints and pubic symphysis are intact without evidence of diastases. The femoral heads are well located. No acute fracture. No dislocation. SOFT TISSUES: Unremarkable. IMPRESSION: No acute findings. Electronically signed by: Mattie Ortiz MD 07/24/2018 9:46 PM CDT
--- NOTE | 2018-07-24 21:49 | RAD ---
EXAM: XR Left Knee, 3 views CLINICAL HISTORY: The patient is 67 years old and is Female; fall with pain TECHNIQUE: Three views of the left knee. COMPARISON: Left knee radiographs August 11, 2017. FINDINGS: BONES/JOINTS: Left knee prosthesis is present. The hardware is engaged. There is no surrounding lucency. There is no joint effusion. No acute fracture. No dislocation. SOFT TISSUES: Unremarkable. IMPRESSION: Left knee arthroplasty without acute findings. Electronically signed by: Mattie Ortiz MD 07/24/2018 9:47 PM CDT
--- NOTE | 2018-07-24 21:50 | RAD ---
EXAM: XR Left Hip With Pelvis When Performed, 2 or 3 Views CLINICAL HISTORY: The patient is 67 years old and is Female; fall with pain TECHNIQUE: Two or three views of the left hip, with pelvis when performed. COMPARISON: No relevant prior studies available. FINDINGS: BONES/JOINTS: Unremarkable. No acute fracture. No dislocation. SOFT TISSUES: Unremarkable. VASCULATURE: Atherosclerosis of the vasculature is present. IMPRESSION: No acute findings. Electronically signed by: Mattie Ortiz MD 07/24/2018 9:48 PM CDT
--- NOTE | 2018-07-24 21:51 | RAD ---
EXAM: XR Left Shoulder Complete, 2 or More Views CLINICAL HISTORY: The patient is 67 years old and is Female; fall with pain TECHNIQUE: Two or more views of the left shoulder. COMPARISON: Chest radiograph May 15, 2018. FINDINGS: BONES/JOINTS: Acromioclavicular and glenohumeral joint space narrowing is present, most prominent at the level of the glenohumeral joint. There is prior of the inferior glenoid and humeral head. Irregularity of the humeral head is noted suggesting degenerative change and is stable from prior exam. No acute fracture. No dislocation. SOFT TISSUES: Unremarkable. IMPRESSION: No acute findings. Electronically signed by: Mattie Ortiz MD 07/24/2018 9:49 PM CDT
--- NOTE | 2018-07-24 21:53 | RAD ---
EXAM: XR Lumbar Spine, 2 or 3 Views CLINICAL HISTORY: The patient is 67 years old and is Female; fall with pain TECHNIQUE: Frontal and lateral views of the lumbar spine. COMPARISON: No relevant prior studies available. FINDINGS: VERTEBRAE: The vertebral body heights are relatively maintained. DISC SPACES: Multilevel degenerative changes spine is present. Sclerosis and endplate irregularity is noted. Vacuum disc phenomenon from L2 through L4 is noted. Facet arthropathy is noted throughout with bilateral neural foraminal narrowing. Apparent grade 1/2 anterolisthesis of L5 on S1 is present. SOFT TISSUES: Unremarkable. IMPRESSION: Degenerative change of the spine Electronically signed by: Mattie Ortiz MD 07/24/2018 9:51 PM CDT
[2018-07-24] MEDS ORDERED: KETOROLAC TROMETHAMINE INJ 30 MG/ML VIAL IM ONE (21:57)
--- NOTE | 2018-07-24 22:03 | ED.PDOC ---
History of Present Illness - General Chief Complaint: Trauma Stated Complaint: fall, left sided pain and tail bone pain Time Seen by Provider: 07/24/18 20:52 Source: patient Exam Limitations: no limitations - History of Present Illness Initial Comments: the patient is a 67-year-old female presenting to the emergency room after having fallen at home accidentally. She does have ambulatory issues to start with. She has hurting essentially on her left side in her left shoulder, clavicle, knee, hip, pelvis and in the low back. No evidence of any overt bruise. No deformity. No crepitus. Passive range of motion is preserved. Active range of motion and strength are preserved. She is neurovascularly at her baseline. She is diffusely sore. Timing/Duration: 4-6 hours Severity: moderate Improving Factors: immobilization Worsening Factors: movement Associated Symptoms: denies symptoms Allergies/Adverse Reactions: Allergies Acetaminophen [From Percocet] Allergy (Intermediate, Verified 07/24/18 20:51) Shortness of Breath CI Pigment Blue 63 [From Cymbalta] Allergy (Intermediate, Verified 07/24/18 20:51) Shortness of Breath Codeine Allergy (Intermediate, Verified 07/24/18 20:51) Hives Duloxetine [From Cymbalta] Allergy (Intermediate, Verified 07/24/18 20:51) Shortness of Breath Meperidine [From Demerol HCl] Allergy (Intermediate, Verified 07/24/18 20:51) Shortness of Breath Oxycodone [From Percocet] Allergy (Intermediate, Verified 07/24/18 20:51) Shortness of Breath Citalopram [From Celexa] Allergy (Verified 07/24/18 20:51) Other Hydrocodone Allergy (Verified 07/24/18 20:51) Other Causes shortness of breath Pregabalin [From Lyrica] Adverse Reaction (Verified 07/24/18 20:51) Other "Caused kidney failure" Home Medications: Ambulatory Orders Diazepam [Valium] 10 mg PO BID PRN 07/06/14 Furosemide [Lasix] 80 mg PO DAILY 07/06/14 Levothyroxine Sodium [Synthroid] 200 mcg PO DAILY 07/06/14 Potassium Chloride [Micro-K] 80 meq PO DAILY 07/06/14 Atenolol [Tenormin] 100 mg PO BEDTIME 08/04/14 Febuxostat [Uloric] 80 mg PO BEDTIME 02/23/16 Linagliptin [Tradjenta] 5 mg PO DAILY 02/23/16 Levetiracetam 1,000 mg PO BID 09/07/16 Morphine Sulfate [Morphine Sulfate ER] 120 mg PO BEDTIME 02/05/18 Cyanocobalamin Inj [Vitamin B-12 Inj] 1,000 mcg IM MONTHLY 05/17/18 Escitalopram [Lexapro] 10 mg PO DAILY 05/17/18 Oxcarbazepine 450 mg PO BID 05/17/18 Review of Systems - Review of Systems Constitutional: States: no symptoms reported EENTM: States: no symptoms reported Respiratory: States: no symptoms reported Cardiology: States: no symptoms reported Gastrointestinal/Abdominal: States: no symptoms reported Genitourinary: States: no symptoms reported Musculoskeletal: States: see HPI Skin: States: no symptoms reported Neurological: States: no symptoms reported Endocrine: States: no symptoms reported All other Systems: No Change from Baseline Past Medical History (General) - Patient Medical History Hx Seizures: No Hx Stroke: No Hx Dementia: No Hx Asthma: No Hx of COPD: No Hx Cardiac Disorders: Yes Hx Congestive Heart Failure: No Hx Pacemaker: No Hx Hypertension: Yes Hx Thyroid Disease: No Hx Diabetes: Yes Hx Gastroesophageal Reflux: No Hx Renal Disease: No Hx Cancer: No Hx of HIV: No Hx Hepatitis C: No Hx MRSA: No MRSA Source:: Wound Surgical History: cancer surgery, cholecystectomy, colectomy, tonsillectomy, Hysterectomy - Vaccination History Hx Tetanus, Diphtheria Vaccination: No Hx Influenza Vaccination: No Hx Pneumococcal Vaccination: No Immunizations Up to Date: No - Social History Hx Tobacco Use: No Hx Chewing Tobacco Use: No Hx Alcohol Use: No Hx Substance Use: No Hx Substance Use Treatment: No Hx Depression: No Hx Physical Abuse: No Hx Emotional Abuse: No Hx Suspected Abuse: No - Female History Patient : No Family Medical History - Family History Father Family History: Unknown Living Status: Hx Family Asthma: No Hx Family Congestive Heart Failure: Yes Hx Family Hypertension: Yes Hx Family Stroke: No Hx Cardiac Disease: Yes Hx Family Diabetes: No Hx Family Cancer: Yes - colon several family members Mother Family History: Unknown Living Status: Hx Family Asthma: Yes Hx Family Congestive Heart Failure: Yes Hx Family Hypertension: Yes Hx Family Stroke: No Hx Cardiac Disease: Yes - hx CABG Hx Family Diabetes: No Hx Family Cancer: No Hx Family;Other: emphysema Physical Exam - Physical Exam General Appearance: Alert, No apparent distress Eye Exam: bilateral normal Ears, Nose, Throat: hearing grossly normal, normal pharynx Neck: non-tender Respiratory: no respiratory distress, no accessory muscle use Cardiovascular/Chest: normal peripheral pulses, no edema, other - regular rate Peripheral Pulses: radial,right: 2+, radial,left: 2+, dorsalis pedis,right: 2+, dorsalis pedis,left: 2+ Gastrointestinal/Abdominal: non tender, soft Rectal Exam: deferred Back Exam: other - mild diffuse discomfort palpation over the lower back. There is some muscle spasm. no Real pinpoint tenderness. No step-off. No laceration. No visible bruising. 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 X-ray of the lumbar spine, left shoulder, pelvis, left knee, left hip, left elbow and left clavicle show no evidence of any fractures or dislocation. No evidence of acute trauma. There are chronic findings. The patient will likely be sore for the next couple weeks. She does need to do range of motion exercises. She does need ambulate carefully with her walker. She can continue her home medications. She was given a shot of Toradol here. She needs to keep routine follow-up with her primary care doctor. Departure - Departure Clinical Impression: Fall at home Qualifiers: Encounter type: initial encounter Qualified Code(s): W19.XXXA - Unspecified fall, initial encounter; Y92.009 - Unspecified place in unspecified non- institutional (private) residence as the place of occurrence of the external cause Strain of left hip Qualifiers: Encounter type: initial encounter Qualified Code(s): S76.012A - Strain of muscle, fascia and tendon of left hip, initial encounter Left shoulder strain Qualifiers: Encounter type: initial encounter Qualified Code(s): S46.912A - Strain of unspecified muscle, fascia and tendon at shoulder and upper arm level, left arm, initial encounter Disposition: Discharge to Home or Self Care Departure Forms: ED Discharge - Pt. Copy, Patient Portal Self Enrollment Diet: regular diet Activity: no pushing/pulling with affected limb Referrals: Yahir Thompson III, MD [Primary Care Provider] - 1-2 Weeks Home Medications: Ambulatory Orders Diazepam [Valium] 10 mg PO BID PRN 07/06/14 Furosemide [Lasix] 80 mg PO DAILY 07/06/14 Levothyroxine Sodium [Synthroid] 200 mcg PO DAILY 07/06/14 Potassium Chloride [Micro-K] 80 meq PO DAILY 07/06/14 Atenolol [Tenormin] 100 mg PO BEDTIME 08/04/14 Febuxostat [Uloric] 80 mg PO BEDTIME 02/23/16 Linagliptin [Tradjenta] 5 mg PO DAILY 02/23/16 Levetiracetam 1,000 mg PO BID 09/07/16 Morphine Sulfate [Morphine Sulfate ER] 120 mg PO BEDTIME 02/05/18 Cyanocobalamin Inj [Vitamin B-12 Inj] 1,000 mcg IM MONTHLY 05/17/18 Escitalopram [Lexapro] 10 mg PO DAILY 05/17/18 Oxcarbazepine 450 mg PO BID 05/17/18 Additional Instructions: the patient is a 67-year-old female presenting to the emergency room secondary to a fall on accident. X-ray of the lumbar spine, left shoulder, pelvis, left knee, left hip, left elbow and left clavicle show no evidence of any fractures or dislocation. No evidence of acute trauma. There are chronic findings. The patient will likely be sore for the next couple weeks. She does need to do range of motion exercises. She does need ambulate carefully with her walker. She can continue her home medications. She was given a shot of Toradol here. She needs to keep routine follow-up with her primary care doctor.
[2018-07-24 22:25] VITALS: BP 111/67; TEMP 97.6; O2SAT 95
== END 2018-07-24 22:25 | disposition home or self-care (01) ==
LOC: ER 20:37
DX: S76.012A Strain of muscle, fascia and tendon of left hip, initial encounter (principal); S46.912A Strain of unspecified muscle, fascia and tendon at shoulder and upper arm level, left arm, initial encounter; M54.5 Low back pain; M25.562 Pain in left knee; I51.9 Heart disease, unspecified; I10 Essential (primary) hypertension; E11.9 Type 2 diabetes mellitus without complications; Z85.9 Personal history of malignant neoplasm, unspecified; Z79.899 Other long term (current) drug therapy; Z88.8 Allergy status to other drugs, medicaments and biological substances; Z88.5 Allergy status to narcotic agent; Z88.6 Allergy status to analgesic agent; W18.30XA Fall on same level, unspecified, initial encounter; Y92.009 Unspecified place in unspecified non-institutional (private) residence as the place of occurrence of the external cause
CPT/HCPCS: 72100; 72170; 73000; 73030; 73070; 73502; 73560; J1885

== ENCOUNTER 2018-09-10 15:43 | Emergency (ER) | payer MEDICARE, OTHER ==
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
[2018-09-10 17:31] VITALS: BP 136/82; TEMP 97.7; O2SAT 97
== END 2018-09-10 17:31 | disposition home or self-care (01) ==
LOC: ER 15:43
DX: F43.20 Adjustment disorder, unspecified (principal); E11.9 Type 2 diabetes mellitus without complications; E07.9 Disorder of thyroid, unspecified; I10 Essential (primary) hypertension; I51.9 Heart disease, unspecified; Z85.038 Personal history of other malignant neoplasm of large intestine; Z79.899 Other long term (current) drug therapy; Z88.8 Allergy status to other drugs, medicaments and biological substances; Z88.5 Allergy status to narcotic agent; Z88.6 Allergy status to analgesic agent